=== PATIENT | female | born 1950 | race Caucasian/White ===

== ENCOUNTER 2017-09-02 15:20 | Inpatient (IN) | payer OTHER ==
[2017-09-02] MEDS ORDERED: diPHENhydraMINE IV* 50 MG/ML 1 ml VIAL (BENADRYL) ONE (16:04)
[2017-09-02] MEDS ORDERED: Haloperidol INJ IV/IM* 5 MG/ML AMP ONE (16:04)
[2017-09-02] MEDS ORDERED: LORazepam INJ* 2 MG/ML 1 ML VIAL ONE (16:04)
[2017-09-02 16:40] LABS: Hematocrit 39 % (35-47); Mean Corpuscular HGB Conc 33 g/dl (31-36); Mean Corpuscular Hemoglobin 29 pg (27-31); Mean Corpuscular Volume 87 fL (80-97); Mean Platelet Volume 9 um3 (7.4-10.4); Red Blood Count 4.49 10^6/ul (4.0-5.4); Red Cell Distribution Width 14 % (10.5-15)
[2017-09-02 16:56] LABS: ALT 16 U/L (7-52); AST 19 U/L (13-39); Albumin 3.8 g/dL (3.2-5.2); Alkaline Phosphatase 73 U/L (34-104); Anion Gap 5 mmol/L (2-11); BUN/Creatinine Ratio 32.9 (8-20); Blood Urea Nitrogen 26 mg/dL (6-24); CO2 Carbon Dioxide 25 mmol/L (22-32); Calcium 8.9 mg/dL (8.6-10.3); Chloride 107 mmol/L (101-111); EGFR African American 93.1 (>60); EGFR Non-African American 72.4 (>60); Globulin 2.3 g/dL (2-4); Glucose 105 mg/dL (70-100); Potassium 3.9 mmol/L (3.5-5.0); Sodium 137 mmol/L (133-145); Total Protein 6.1 g/dL (6.4-8.9)
[2017-09-02 17:33] LABS: Acetaminophen < 15 mcg/mL; Alcohol < 10 mg/dL (<10); Salicylate < 2.50 mg/dL (<30)
[2017-09-02 17:38] LABS: TSH (Thyroid Stimulating Horm) 0.55 mcIU/mL (0.34-5.60)
--- NOTE | 2017-09-03 05:39 | ED ---
Gerardo Mckeon Gabriel, scribed for Baltazar Nava on 09/03/17 at 0529 . Progress - Progress Note Progress Note: This patient was signed out from Dr. Mariano, pending disposition, awaiting MHE. After MHE, the director stage has decided to admit the patient but their facility is full, when they have room they will admit her. - Consult/PCP Time Called: 03:11 Course/Dx - Diagnoses Provider Diagnoses: Psychosis The documentation as recorded by the Gerardo max Gabriel accurately reflects the service I personally performed and the decisions made by Elijah ledesma Emmanuel.
--- NOTE | 2017-09-03 10:56 | ED ---
Anthony Mckeon Benjamin, scribed for Laura Evans MD on 09/03/17 at 1056 . Progress - Progress Note Progress Note: This patient was signed out from Dr. Nava, pending disposition, awaiting MHE. - Consult/PCP Time Called: 03:11 Course/Dx - Course Course Of Treatment: Pt is admitted to MHU. - Diagnoses Provider Diagnoses: Schizophrenia The documentation as recorded by the sarahibAnthony arias Benjamin accurately reflects the service I personally performed and the decisions made by Nathan ledesma Abdul, MD.
[2017-09-03] MEDS ORDERED: Al Hydrox/Mg Hydrox/Simet LIQ* 30 ML UDC PO PRN (11:51)
[2017-09-03] MEDS ORDERED: Acetaminophen TAB* 325 MG PO PRN (11:51)
[2017-09-03] MEDS: fluPHENAZine HCL TAB* 5 MG PO SCH (13:16)
[2017-09-03] MEDS ORDERED: chlorproMAZINE TAB* 50 MG PO PRN (16:03)
[2017-09-03] MEDS ORDERED: Benzocaine/Menthol LOZ* 1 LOZENGE PO PRN (16:03)
[2017-09-04] MEDS: LORazepam TAB(*) 0.5 MG PO PRN (06:02)
[2017-09-04] MEDS: Vitamin THERAPEUTIC TAB PO SCH (09:37)
[2017-09-04] MEDS: fluPHENAZine HCL TAB* 5 MG PO SCH (09:37)
--- NOTE | 2017-09-04 11:36 | HP ---
HISTORY AND PHYSICAL: DATE OF ADMISSION: 09/03/17 SUPERVISING PSYCHIATRIST: Dr. Torito Head * (DICTATED BY SHELTON ROBERTS NP) JUSTIFICATION FOR ADMISSION: The patient was brought to the emergency department under 9.45 by [facility] Crisis Team. She had been in the community and presented as floridly psychotic. According to the [facility], the patient was discharged from a psychiatric hospital on the 4th of this month. Today, prior to arrival, the patient was combative with police and with emergency department staff and was given IM medications in the emergency department. CHIEF COMPLAINT: "I am here illegally and everyone will be receiving five years of halfway time for keeping me here." HISTORY OF PRESENT ILLNESS: Ms. Key is a 67-year-old female with multiple psychiatric hospitalizations including to this unit. She is well known to this unit and this commercial insurance underwriter and has a history of schizoaffective disorder. She has history of fixed delusions and continues to express these. 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 She reports that she has been cleared of all mental hygiene, legal implications and does not need to be on medications, nor does she need to be in mental health treatment. She is superficially pleasant. She sits on bed and she is well groomed. She is assertive in her beliefs and continues to deny need for psychiatric care. She declines offer of this commercial insurance underwriter to collaborate with her primary care provider and denies that she has outpatient mental health services. This commercial insurance underwriter phoned [facility] and she has not been an active client since 2012. Therefore, more investigation will be needed to identify where was her recent hospitalization and aftercare. As stated above, the patient is familiar to [facility] from previous hospitalizations. She has had similar presentations in previous admissions. Currently, she is denying audio or visual hallucinations. She is grandiose and speaks of fixed delusions. She is guarded and suspicious and has been in behavioral control since admitted to the mental health unit or the [facility]. PAST PSYCHIATRIC HISTORY: The patient has a longstanding history of schizoaffective disorder and treatment at [facility]. As stated above, she has not been an active client since 2012. She has a history of treatment with Prolixin Decanoate every two weeks. She declined this medication upon arrival to the [facility]. She has no known history of suicide attempts. She has been hospitalized four times at [facility] since 2007 and she has been stay hospitalized for up to 18 months. PAST MEDICATION TRIALS: Estrace and Prolixin. She has also been trialed on Cogentin, trazodone, haloperidol. According to history, she has had her best response with Prolixin Decanoate and lithium adjunct. SUBSTANCE USE HISTORY: The patient reports use of alcohol one glass of wine approximately once a week. She denied other substance use. She is a former smoker and denies current tobacco use. PAST MEDICAL HISTORY: The patient reports current sore throat. Denies other medical problems. Medical record indicates a history of GERD and hypercholesterolemia. CURRENT MEDICATIONS: The patient denies active medications. ALLERGIES: No known drug allergies. SOCIAL HISTORY: The patient reports she is living alone and doing well on her own. Again more information will need to be obtained. Prior records indicate that she has lived in [place] since approximately 2000. She received SSI and SSD. There is no record ever being or having children, and there is no history of legal problems. PHYSICAL EXAMINATION The patient declined physical examination and this was deferred so as not to prevent therapeutic rapport. She denies complaints other than sore throat at this time and she was medically cleared. In the emergency department, she is noted to have somewhat garbled speech and she denies problems with her tongue and is likely that this is an EPS from intermediate antipsychotic medications. She denies pain or discomfort in relation to her tongue or mouth. VITAL SIGNS: Temp 97.1, pulse 73, respirations 16, O2 saturation 99%, BP 131/ 77. LABORATORY DATA: Obtained in the emergency department, her CBC was within normal limits. CMP, BUN high at 26, BUN/creatinine ratio high at 32.9, glucose 105, protein low at 6.1, TSH normal at 0.55. Urinalysis within normal limits. Toxicology negative for salicylates, acetaminophen, or alcohol. Urine drug screen was negative. MENTAL STATUS EXAM: The patient is well groomed, wearing a mg business casual dress. She is wearing dark spectacles. She has long mg hair that is well groomed. She appears stated age. She sits on the bed and speaks with commercial insurance underwriter. She has adequate posture. She is cooperative and pleasant, but somewhat guarded. She changes positions often. She is alert and oriented x3. Her concentration is fair. Her memory is 3/3. Her mood is "fine." Her affect is congruent, bright upon approach. Her speech is soft, garbled, normal volume and rate. Thought process is circumstantial in regards to disagreement and being brought to the emergency department under mental hygiene law and thus being admitted to the [facility]. Content of thought positive for fixed delusions. She denies AV hallucinations, SI, HI, or PI. Her insight is poor. Her judgement is poor and her fund of knowledge is adequate. DIAGNOSES: Schizoaffective disorder, bipolar type; history of gastroesophageal reflux disease; hypercholesterolemia. ASSESSMENT: Ms. Key is a 67-year-old female with a history of schizoaffective disorder, bipolar type. She presented to the emergency department under 9.45 due to disorganized behaviors and bizarre behavior in the community. 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 We will need to identify where this was and what the aftercare plan was. She has refused releases of information for current outpatient providers. She is likely noncompliant with medications. PLAN: Admit to adult behavioral services unit on 9.39 status. Code status is full. Safety checks every 15 minutes. The patient will be encouraged to participate in supportive milieu and psychoeducational groups. We will continue to offer known medications and monitor for mood and thought content. Estimated length of stay is 7 to 10 days. Discharge planning will include outpatient providers with the patient's consent. SHELTON ROBERTS, YOGESH [id number]/CPS #: [id number] DANIELA
--- NOTE | 2017-09-04 12:18 | PN ---
Subjective - Subjective Service Type: 88336 Hosp care 25 min moderate complexity Subjective: Lissette continues to present as calm and in behavioral control. She is pleasant upon approach and engages in conversation. Her thought content is positive for delusions. She reports "I'm not here for mental illness. 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 She states she met with a patient who had lost his arms in the war and his hands were attached to his head in order for him to do gardening. She also talks of her work at [employer] in [place], [place] and [place]. Patient denies GERD symptoms or need for proton pump inhibitor. She states she needs a "IV barium-calcium flush." She presents with involuntary tongue movements when following commands to touch her finger tips to her thumbs bilaterally. She attributes this to a "gladiator hitting me daily and giving me boron poisoning." She denies this to be troublesome and refuses offer of medications such as benztropine or ingrezza. She is noted to have edema on lateral L ankle. She reports this is due to "metabolic involvement from the site of increased peritoneal fluid." She reports having a recent xray and denies pain. Lissette reports she is functioning well and lives alone. She is dating a man named Santiago and they are planning to , have children and retire from all of their hard work. She states she has been deemed "normal with normal brain, behavior and competence." Objective - Appearance Appearance: Well Developed/Nourished Dysmorphic Features: No Hygiene: Normal Grooming: Fairly Well Kept - Behavior Psychomotor Activities: Abnormal-Increased - involuntary toungue movements Exhibits Abnormal Movement: Yes - Attitude and Relatedness Attitude and Relatedness: Psychotically Related Eye Contact: Good - Speech Quality: Unpressured Latencies: Normal Quantity: Copious - Mood Patient's Decription of Mood: "Fine" - Affect Observed Affect: Expansive Affect Consistent with: Euphoria - Thought Process Patient's Thought Process: Disorganized, Tangential, Filght of Ideas Thought Content: Yes Paranoid Ideation - Marshallese doctors, No Passive Wish , No Suicidal Planning, No Homicidal Ideation - Sensorium Experiencing Hallucinations: Yes Type of Hallucinations: Visual: No, Auditory: Yes, Command: No - Level of Consciousness Level of Consciousness: Alert Orientation: Yes Intact, Yes Orientated to Time, Yes Orientated to Place, Yes Orientated to Person - Impulse Control Impulse Control: Tenuous - Insight and Judgement Insight and Judgement: Poor - Group Participation Particating in Group Activities: No - Medication Management Medication Management Adherence: No Assessment - Assessment Merits Inpatient Hospitalization: For Immediate Safety, For Stabilization, To Initiate Treatment, For Discharge Planning Inpatient DSM-IV Dx: schizoaffective d/o, bipolar type Clinical Impression: 67yo white female with hx of multiple psychiatric hospitalizations at [facility] and [facility]. She presented to ED via 945 due to bizarre and disorganized in community. She is floridly psychotic and refusing treatment. She merits hospitalization for immediate safety, evaluation and stabilization. Plan - Plan Treatment Plan: Name: LISSETTE ARTIS Birthdate: 1950 [id number] continue acute intensive psychiatric treatment. obtain information about recent mental health treatment, if any. may consider the T.O.O. process and await a court ruling to force-medicate for safety. Continued Medication Management: Start Medication Medications: Current Medications Acetaminophen (Tylenol Tab*) 650 mg PO Q4H PRN PRN Reason: for pain; or Temp >101 F Al Hydrox/Mg Hydrox/Simethicone (Maalox Plus*) 30 ml PO Q4H PRN PRN Reason: INDIGESTION Chlorpromazine HCl (Thorazine Tab*) 50 mg PO Q8H PRN PRN Reason: severe agitation Fluphenazine HCl (Prolixin Tab*) 5 mg PO DAILY [facility] Last Admin: 09/04/17 09:37 Dose: Not Given Lorazepam (Ativan Tab(*)) 0.5 mg PO Q6H PRN PRN Reason: anxiety/agitation Last Admin: 09/04/17 06:02 Dose: 0.5 mg Multivitamins (Theragran Tab*) 1 tab PO DAILY [facility] Last Admin: 09/04/17 09:37 Dose: Not Given Throat Lozenges (Chloraseptic Nikita*) 1 nikita PO Q2H PRN PRN Reason: SORE THROAT - Discharge Plan Discharge Plan: Outpatient Follow Up Outpatient Program: [facility]
[2017-09-05] MEDS: fluPHENAZine HCL TAB* 5 MG PO SCH (09:51)
[2017-09-05] MEDS: Vitamin THERAPEUTIC TAB PO SCH (09:51)
--- NOTE | 2017-09-05 13:18 | ED ---
Alexandria Mckeon Thomas, scribed for Todd Mariano MD on 09/02/17 at 1621 . Psychiatric Complaint - HPI Summary HPI Summary: The patient is a 67 y/o F BIBA as a 945. In the examination room, she is a poor historian. She is hyperverbal. She is agitated. She has word salad. She has tangential speech. It is not possible to have a conversation with her. At this point, I do not want to touch her before she is medication because I am concerned that she will become more agitated. Per EMR, the patient has a Hx of schizoaffective disorder and psychosis. LEVEL 5 CAVEAT: HPI LIMITED BY MENTAL STATE - History Of Current Complaint Time Seen by Provider: 09/02/17 15:37 Hx Obtained From: Patient Onset/Duration: Still Present Timing: Constant Character: Angry Related History: Positive For: Prior Psychiatric Issues - Allergies/Home Medications Allergies/Adverse Reactions: Allergies Allergy/AdvReac Type Severity Reaction Status Date / Time SEASONAL HAYFEVER Allergy Unknown Uncoded 12/07/14 07:41 Reaction Details PMH/Surg Hx/FS Hx/Imm Hx Previously Healthy: No - LEVEL 5 CAVEAT: PMH LIMITED BY MENTAL STATE Musculoskeletal History: Reports: Hx Arthritis - RIGHT KNEE AND LEG Denies: Hx Osteoporosis Sensory History: Reports: Hx Cataracts - BILATERAL, Hx Contacts or Glasses - GLASSES Denies: Hx Hearing Aid Opthamlomology History: Reports: Hx Cataracts - BILATERAL, Hx Contacts or Glasses - GLASSES Psychiatric History: Reports: Hx Anxiety - CONTROL WITH MEDS, Hx Depression - Cancer History Hx Chemotherapy: No Hx Radiation Therapy: No - Surgical History Surgery Procedure, Year, and Place: 1989 LARYGNX PEEL WITH LASER, [place], SCFACIAL SURGERY A CHILD TIMES 2. Hx Anesthesia Reactions: No Infectious Disease History: Denies: Traveled Outside the [place] in Last 30 Days - Family History Known Family History: Positive: Other - LEVEL 5 CAVEAT: FHX LIMITED BY MENTAL STATE - Social History Alcohol Use: None Hx Substance Use: No Substance Use Type: Reports: None Hx Tobacco Use: Yes Smoking Status (MU): Former Smoker Type: Cigarettes Amount Used/How Often: 2 PPD Length of Time of Smoking/Using Tobacco: 10-12 YEARS Have You Smoked in the Last Year: No Review of Systems - ROS Summary Review of Systems Summary: LEVEL 5 CAVEAT: ROS LIMITED BY MENTAL STATE Positive: Other - Psychiatric problems All Other Systems Reviewed And Are Negative: No Physical Exam - Summary Physical Exam Summary: VITAL SIGNS: Reviewed. GENERAL: ~Patient is a well-developed and nourished female who is lying comfortable in the stretcher. ~Patient is not in any acute respiratory distress. HEAD AND FACE: No signs of trauma. ~No ecchymosis, hematomas or skull depressions. No sinus tenderness. EYES: PERRLA, EOMI x 2, No injected conjunctiva, no nystagmus. EARS: Hearing grossly intact. Ear canals and tympanic membranes are within normal limits. MOUTH: Oropharynx within normal limits. NECK: Supple, trachea is midline, no adenopathy, no JVD, no carotid bruit, no c- spine tenderness, neck with full ROM. CHEST: Symmetric, no tenderness at palpation LUNGS: Clear to auscultation bilaterally. No wheezing or crackles. CVS: Regular rate and rhythm, S1 and S2 present, no murmurs or gallops appreciated. ABDOMEN: Soft, non-tender. No signs of distention. No rebound no guarding, and no masses palpated. Bowel sounds are normal. EXTREMITIES: FROM in all major joints, no edema, no cyanosis or clubbing. NEURO: Alert and oriented x 3. No acute neurological deficits. Speech is normal and follows commands. SKIN: Dry and warm PSYCH: Tangential speech. Hyperverbal. Agitation. Word Salad. LEVEL 5 CAVEAT: PHYSICAL EXAM LIMITED BY MENTAL STATE Triage Information Reviewed: Yes Vital Signs Reviewed: Yes Diagnostics - Laboratory Result Diagrams: 09/02/17 16:34 09/02/17 16:34 Lab Statement: Any lab studies that have been ordered have been reviewed, and results considered in the medical decision making process. Course/Dx - Course Assessment/Plan: The patient is a 67 y/o F BIBA as a 945. In the examination room, she is a poor historian. She is hyperverbal. She is agitated. She has word salad. She has tangential speech. It is not possible to have a conversation with her. At this point, I do not want to touch her before she is medication because I am concerned that she will become more agitated. Per EMR, the patient has a Hx of schizoaffective disorder and psychosis. CT results are without any significant abnormalities. The patient is agitated, not cooperative , and a danger to herself and others. Therefore, the patient was given the B-52 to sedate her. The patient seems to be in some sort of psychosis and agitation. Therefore, at this point the patient will be observed in the emergency department and signed out to Dr. Nava for the patient to be medically cleared and for a further mental health evaluation. - Differential Dx/Clinical Impression Provider Diagnosis: Psychosis Discharge - Discharge Plan Condition: Fair Disposition: OTHER Discharge Disposition Comment: Signed out to Dr. Nava awaiting medical cleareance for MHE. Referrals: Judie Epps MD [Primary Care Provider] - The documentation as recorded by the Alexandria max Thomas accurately reflects the service I personally performed and the decisions made by , Todd Mariano MD.
--- NOTE | 2017-09-05 15:35 | PN ---
Subjective - Subjective Service Type: 33006 Hosp care 15 min low complexity Subjective: Patient asks to be discharged by 4:15 today. She states she can walk with peers during staff pass then to the bus stop. She goes on to state she does not need to be here. 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 She continues to justify tardive dyskinesia movements as "exposure to boron in a mound of my brain." Objective - Appearance Appearance: Well Developed/Nourished Dysmorphic Features: No Hygiene: Normal Grooming: Fairly Well Kept - Behavior Psychomotor Activities: Abnormal-Increased - involuntary tongue movements Exhibits Abnormal Movement: Yes - Attitude and Relatedness Attitude and Relatedness: Psychotically Related Eye Contact: Good - Speech Quality: Unpressured Latencies: Normal Quantity: Appropriate - Mood Patient's Decription of Mood: "Fine" - Affect Observed Affect: Expansive Affect Consistent with: Euphoria - Thought Process Patient's Thought Process: Tangential, Filght of Ideas Thought Content: Yes Paranoid Ideation, No Passive Wish, No Suicidal Planning, No Homicidal Ideation - Sensorium Experiencing Hallucinations: Yes Type of Hallucinations: Visual: No, Auditory: Yes, Command: No - Level of Consciousness Level of Consciousness: Alert Orientation: Yes Intact, Yes Orientated to Time, Yes Orientated to Place, Yes Orientated to Person - Impulse Control Impulse Control: Poor - Insight and Judgement Insight and Judgement: Poor - Group Participation Particating in Group Activities: No - Medication Management Medication Management Adherence: No Assessment - Assessment Merits Inpatient Hospitalization: For Immediate Safety, For Stabilization, To Initiate Treatment, Pending Safe DC Plan Inpatient DSM-IV Dx: schizoaffective d/o, bipolar type Clinical Impression: 67yo white female with hx of multiple psychiatric hospitalizations at [facility] and [facility]. She presented to ED via 945 due to bizarre and disorganized in community. She is floridly psychotic and refusing treatment. She merits hospitalization for immediate safety, evaluation and stabilization. Plan - Plan Treatment Plan: Name: LISSETTE ARTIS Birthdate: 1950 [id number] continue acute intensive psychiatric treatment. obtain information about recent mental health treatment, if any. may consider the T.O.O. process and await a court ruling to force-medicate for safety. Continued Medication Management: Start Medication Medications: Current Medications Acetaminophen (Tylenol Tab*) 650 mg PO Q4H PRN PRN Reason: for pain; or Temp >101 F Al Hydrox/Mg Hydrox/Simethicone (Maalox Plus*) 30 ml PO Q4H PRN PRN Reason: INDIGESTION Chlorpromazine HCl (Thorazine Tab*) 50 mg PO Q8H PRN PRN Reason: severe agitation Fluphenazine HCl (Prolixin Tab*) 5 mg PO DAILY [facility] Last Admin: 09/05/17 09:51 Dose: Not Given Lorazepam (Ativan Tab(*)) 0.5 mg PO Q6H PRN PRN Reason: anxiety/agitation Last Admin: 09/04/17 06:02 Dose: 0.5 mg Multivitamins (Theragran Tab*) 1 tab PO DAILY [facility] Last Admin: 09/05/17 09:51 Dose: Not Given Throat Lozenges (Chloraseptic Nikita*) 1 nikita PO Q2H PRN PRN Reason: SORE THROAT - Discharge Plan Discharge Plan: Consider Longer Term Tx Outpatient Program: [facility]
[2017-09-05] MEDS: LORazepam TAB(*) 0.5 MG PO PRN (23:04)
[2017-09-06] MEDS: Vitamin THERAPEUTIC TAB PO SCH (09:07)
[2017-09-06] MEDS: fluPHENAZine HCL TAB* 5 MG PO SCH (09:09)
[2017-09-06] MEDS: LORazepam TAB(*) 0.5 MG PO PRN (19:04)
[2017-09-07] MEDS: fluPHENAZine HCL TAB* 5 MG PO SCH (09:51)
[2017-09-07] MEDS: Vitamin THERAPEUTIC TAB PO SCH (09:51)
--- NOTE | 2017-09-07 19:15 | PN ---
Subjective - Subjective Subjective: Lissette is pleasant on approach but remains hyperverbal, delusional and disorganized in her thinking. She denies need for medications, does not appear to understand TOO process. She requests discharge early tomorrow. Objective - Appearance Appearance: Healthy Appearing Dysmorphic Features: No Hygiene: Normal Grooming: Well Kept - Behavior Psychomotor Activities: Normal Exhibits Abnormal Movement: No - Attitude and Relatedness Attitude and Relatedness: Psychotically Related Eye Contact: Good - Speech Quality: Pressured Latencies: Normal Quantity: Copious - Mood Patient's Decription of Mood: "Okay" - Affect Observed Affect: Non-labile - Thought Process Patient's Thought Process: Disorganized, Over Inclusive Thought Content: No Passive Wish, No Suicidal Planning, No Homicidal Ideation, No Paranoid Ideation - Sensorium Experiencing Hallucinations: No, Sensorium is Clear - Level of Consciousness Level of Consciousness: Alert Orientation: Yes Intact - Impulse Control Impulse Control: Tenuous - Insight and Judgement Insight and Judgement: Impaired - Group Participation Particating in Group Activities: No - Medication Management Medication Management Adherence: No Assessment - Assessment Merits Inpatient Hospitalization: For Ongoing Evaluation, Consolidate Improvements, For Discharge Planning Inpatient DSM-IV Dx: schizoaffective d/o, bipolar type Clinical Impression: Ongoing impairing, manic/psychotic symptoms, refusing meds, mildly disruptive. Follow-up with court hearing for TOO. Plan - Plan Treatment Plan: Name: LISSETTE ARTIS Birthdate: 1950 [id number] Medications: Current Medications Acetaminophen (Tylenol Tab*) 650 mg PO Q4H PRN PRN Reason: for pain; or Temp >101 F Al Hydrox/Mg Hydrox/Simethicone (Maalox Plus*) 30 ml PO Q4H PRN PRN Reason: INDIGESTION Chlorpromazine HCl (Thorazine Tab*) 50 mg PO Q8H PRN PRN Reason: severe agitation Fluphenazine HCl (Prolixin Tab*) 5 mg PO DAILY [facility] Last Admin: 09/07/17 09:51 Dose: Not Given Lorazepam (Ativan Tab(*)) 0.5 mg PO Q6H PRN PRN Reason: anxiety/agitation Last Admin: 09/06/17 19:04 Dose: 0.5 mg Multivitamins (Theragran Tab*) 1 tab PO DAILY [facility] Last Admin: 09/07/17 09:51 Dose: Not Given Throat Lozenges (Chloraseptic Zhao*) 1 zhao PO Q2H PRN PRN Reason: SORE THROAT - Discharge Plan Discharge Plan: Consider Longer Term Tx Outpatient Program: TBD
[2017-09-07] MEDS: LORazepam TAB(*) 0.5 MG PO PRN (21:03)
[2017-09-08] MEDS: Vitamin THERAPEUTIC TAB PO SCH (10:07)
[2017-09-08] MEDS: fluPHENAZine HCL TAB* 5 MG PO SCH (10:07)
--- NOTE | 2017-09-08 12:55 | PN ---
Subjective - Subjective Service Type: 24139 Hosp care 15 min low complexity Subjective: This clinician is taking over Lissette's care due to her steadfast refusal to adhere with recommended antipsychotic therapy up until now in her hospitalization. The patient is overtly delusional on examination, telling me that she is [facility] who works for [employer]. "This is a misunderstanding. I was taken here mistakenly. I have Tourette's syndrome but otherwise am of sound mind and body. There is a court order that I am to be deemed mentally competent for the remainder of my life. 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 Are you a Bahamian doctor or a Turkmen doctor, because I have been authorized to be called sane by all members of the international community." The patient is not participating in groups or leaving her room much. Staff notes indicate she has been attempting to call 911 for the police to take her home. At times she is agitated, yelling rude comments at staff and peers. She is mostly observed talking to herself. Objective - Appearance Appearance: Well Developed/Nourished Dysmorphic Features: No Hygiene: Normal Grooming: Fairly Well Kept - Behavior Psychomotor Activities: Normal Exhibits Abnormal Movement: No - Attitude and Relatedness Attitude and Relatedness: Psychotically Related Eye Contact: Fair - Speech Quality: Pressured Latencies: Short Quantity: Copious - Mood Patient's Decription of Mood: "Fine" - Affect Observed Affect: Labile Affect Consistent with: Euphoria - Thought Process Patient's Thought Process: Loose Associations Thought Content: Yes Paranoid Ideation, No Passive Wish, No Suicidal Planning, No Homicidal Ideation - Sensorium Experiencing Hallucinations: Yes Type of Hallucinations: Visual: No, Auditory: Yes, Command: No - Level of Consciousness Level of Consciousness: Alert Orientation: Yes Intact, Yes Orientated to Time, Yes Orientated to Place, Yes Orientated to Person - Impulse Control Impulse Control: Poor - Insight and Judgement Insight and Judgement: Impaired - Group Participation Particating in Group Activities: No - Medication Management Medication Management Adherence: No Assessment - Assessment Merits Inpatient Hospitalization: For Immediate Safety, For Stabilization Inpatient DSM-IV Dx: schizoaffective d/o, bipolar type Clinical Impression: 67 y.o. single, white female with a history of schizoaffective DO, bipolar type who was brought to the ED on a 9.45 due to disruptive, agitated behavior in the community and inability to care for herself. Plan - Plan Treatment Plan: Name: LISSETTE ARTIS Birthdate: 1950 [id number] The patient is non-adherent with antipsychotic therapy and will require T.O.O. proceedings to get her well enough for safe discharge. Continue inpatient management. Continued Medication Management: Start Medication Medications: Current Medications Acetaminophen (Tylenol Tab*) 650 mg PO Q4H PRN PRN Reason: for pain; or Temp >101 F Al Hydrox/Mg Hydrox/Simethicone (Maalox Plus*) 30 ml PO Q4H PRN PRN Reason: INDIGESTION Chlorpromazine HCl (Thorazine Tab*) 50 mg PO Q8H PRN PRN Reason: severe agitation Fluphenazine HCl (Prolixin Tab*) 5 mg PO DAILY [facility] Last Admin: 09/08/17 10:07 Dose: Not Given Lorazepam (Ativan Tab(*)) 0.5 mg PO Q6H PRN PRN Reason: anxiety/agitation Last Admin: 09/07/17 21:03 Dose: 0.5 mg Multivitamins (Theragran Tab*) 1 tab PO DAILY [facility] Last Admin: 09/08/17 10:07 Dose: Not Given Throat Lozenges (Chloraseptic Zhao*) 1 zhao PO Q2H PRN PRN Reason: SORE THROAT - Discharge Plan Discharge Plan: Inpatient Hospitalization
--- NOTE | 2017-09-09 10:54 | PN ---
Subjective - Subjective Service Type: 50496 Hosp care 15 min low complexity Subjective: Lissette is found lying in bed, seclusive to her room, not participating in milieu functions other than meals. Her speech is incomprehensible but I discern some complaints she is making about the court here in [facility] being a "kangaroo court." She is highly disorganized and not able to give me details about where she has been residing or how she takes care of herself outside the hospital. Objective - Appearance Appearance: Well Developed/Nourished Dysmorphic Features: No Hygiene: Normal Grooming: Fairly Well Kept - Behavior Psychomotor Activities: Normal Exhibits Abnormal Movement: No - Attitude and Relatedness Attitude and Relatedness: Psychotically Related Eye Contact: Fair - Speech Quality: Pressured Latencies: Short Quantity: Copious - Mood Patient's Decription of Mood: "Fine" - Affect Observed Affect: Expansive Affect Consistent with: Euphoria - Thought Process Patient's Thought Process: Disorganized, Filght of Ideas Thought Content: Yes Paranoid Ideation, No Passive Wish, No Suicidal Planning, No Homicidal Ideation - Sensorium Experiencing Hallucinations: No, Sensorium is Clear Type of Hallucinations: Visual: No, Auditory: No, Command: No - Level of Consciousness Level of Consciousness: Alert Orientation: Yes Intact, Yes Orientated to Time, Yes Orientated to Place, Yes Orientated to Person - Impulse Control Impulse Control: Poor - Insight and Judgement Insight and Judgement: Impaired - Group Participation Particating in Group Activities: No - Medication Management Medication Management Adherence: No Assessment - Assessment Merits Inpatient Hospitalization: For Immediate Safety, For Stabilization Inpatient DSM-IV Dx: schizoaffective d/o, bipolar type Clinical Impression: 67 y.o. single, white female with a history of schizoaffective DO, bipolar type who was brought to the ED on a 9.45 due to disruptive, agitated behavior in the community and inability to care for herself. Plan - Plan Treatment Plan: Name: LISSETTE ARTIS Birthdate: 1950 [id number] The patient is non-adherent with antipsychotic therapy and will require T.O.O. proceedings to get her well enough for safe discharge. Continue inpatient management. Continued Medication Management: Start Medication Medications: Current Medications Acetaminophen (Tylenol Tab*) 650 mg PO Q4H PRN PRN Reason: for pain; or Temp >101 F Al Hydrox/Mg Hydrox/Simethicone (Maalox Plus*) 30 ml PO Q4H PRN PRN Reason: INDIGESTION Chlorpromazine HCl (Thorazine Tab*) 50 mg PO Q8H PRN PRN Reason: severe agitation Fluphenazine HCl (Prolixin Tab*) 5 mg PO DAILY [facility] Last Admin: 09/08/17 10:07 Dose: Not Given Lorazepam (Ativan Tab(*)) 0.5 mg PO Q6H PRN PRN Reason: anxiety/agitation Last Admin: 09/07/17 21:03 Dose: 0.5 mg Multivitamins (Theragran Tab*) 1 tab PO DAILY [facility] Last Admin: 09/08/17 10:07 Dose: Not Given Throat Lozenges (Chloraseptic Zhao*) 1 zhao PO Q2H PRN PRN Reason: SORE THROAT - Discharge Plan Discharge Plan: Inpatient Hospitalization
[2017-09-09] MEDS: fluPHENAZine HCL TAB* 5 MG PO SCH (11:30)
[2017-09-09] MEDS: Vitamin THERAPEUTIC TAB PO SCH (11:30)
[2017-09-10] MEDS: fluPHENAZine HCL TAB* 5 MG PO SCH (09:34)
[2017-09-10] MEDS: Vitamin THERAPEUTIC TAB PO SCH (09:34)
--- NOTE | 2017-09-10 14:09 | PN ---
Subjective - Subjective Service Type: 28307 Hosp care 15 min low complexity Subjective: The patient remains hyperverbal, talking and shouting to herself on the milieu. She has been reportedly stalking her roommate around the unit, accusing her of crimes and interrogating her in what she calls an "active investigation." She is refusing medications and is highly disorganized. Objective - Appearance Appearance: Well Developed/Nourished Dysmorphic Features: No Hygiene: Normal Grooming: Fairly Well Kept - Behavior Psychomotor Activities: Normal Exhibits Abnormal Movement: No - Attitude and Relatedness Attitude and Relatedness: Psychotically Related Eye Contact: Poor - Speech Quality: Pressured Latencies: Short Quantity: Copious - Mood Patient's Decription of Mood: "Fine" - Affect Observed Affect: Labile Affect Consistent with: Euphoria - Thought Process Patient's Thought Process: Incoherent, Disorganized Thought Content: Yes Paranoid Ideation, No Passive Wish, No Suicidal Planning, No Homicidal Ideation - Sensorium Experiencing Hallucinations: Yes Type of Hallucinations: Visual: No, Auditory: Yes, Command: No - Level of Consciousness Level of Consciousness: Agitated Orientation: Yes Intact, Yes Orientated to Time, Yes Orientated to Place, Yes Orientated to Person - Impulse Control Impulse Control: Poor - Insight and Judgement Insight and Judgement: Impaired - Group Participation Particating in Group Activities: No - Medication Management Medication Management Adherence: No Assessment - Assessment Merits Inpatient Hospitalization: For Immediate Safety, For Stabilization Inpatient DSM-IV Dx: schizoaffective d/o, bipolar type Clinical Impression: 67 y.o. single, white female with a history of schizoaffective DO, bipolar type who was brought to the ED on a 9.45 due to disruptive, agitated behavior in the community and inability to care for herself. Plan - Plan Treatment Plan: Name: LISSETTE ARTIS Birthdate: 1950 [id number] The patient is non-adherent with antipsychotic therapy and will require T.O.O. proceedings to get her well enough for safe discharge. Continue inpatient management. Continued Medication Management: Start Medication Medications: Current Medications Acetaminophen (Tylenol Tab*) 650 mg PO Q4H PRN PRN Reason: for pain; or Temp >101 F Al Hydrox/Mg Hydrox/Simethicone (Maalox Plus*) 30 ml PO Q4H PRN PRN Reason: INDIGESTION Chlorpromazine HCl (Thorazine Tab*) 50 mg PO Q8H PRN PRN Reason: severe agitation Fluphenazine HCl (Prolixin Tab*) 5 mg PO DAILY [facility] Last Admin: 09/10/17 09:34 Dose: Not Given Lorazepam (Ativan Tab(*)) 0.5 mg PO Q6H PRN PRN Reason: anxiety/agitation Last Admin: 09/07/17 21:03 Dose: 0.5 mg Multivitamins (Theragran Tab*) 1 tab PO DAILY [facility] Last Admin: 09/10/17 09:34 Dose: Not Given Throat Lozenges (Chloraseptic Nikita*) 1 nikita PO Q2H PRN PRN Reason: SORE THROAT - Discharge Plan Discharge Plan: Inpatient Hospitalization
[2017-09-11] MEDS: Vitamin THERAPEUTIC TAB PO SCH (09:05)
[2017-09-11] MEDS: fluPHENAZine HCL TAB* 5 MG PO SCH (09:05)
--- NOTE | 2017-09-11 13:13 | PN ---
Subjective - Subjective Date of Service: 09/11/17 Service Type: 30947 Hosp care 15 min low complexity Subjective: Lissette was quite agitated and started screaming at me in the hallway after I mentioned her pending court hearing today. 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 Objective - Appearance Appearance: Well Developed/Nourished Dysmorphic Features: No Hygiene: Normal Grooming: Fairly Well Kept - Behavior Psychomotor Activities: Normal Exhibits Abnormal Movement: No - Attitude and Relatedness Attitude and Relatedness: Hostile Eye Contact: Poor - Speech Quality: Pressured Latencies: Short Quantity: Copious - Mood Patient's Decription of Mood: "Fine" - Affect Observed Affect: Labile Affect Consistent with: Euphoria - Thought Process Patient's Thought Process: Disorganized Thought Content: Yes Paranoid Ideation, No Passive Wish, No Suicidal Planning, No Homicidal Ideation - Sensorium Experiencing Hallucinations: Yes Type of Hallucinations: Visual: No, Auditory: Yes, Command: No - Level of Consciousness Level of Consciousness: Agitated Orientation: Yes Intact, Yes Orientated to Time, Yes Orientated to Place, Yes Orientated to Person - Impulse Control Impulse Control: Poor - Insight and Judgement Insight and Judgement: Impaired - Group Participation Particating in Group Activities: No - Medication Management Medication Management Adherence: No Assessment - Assessment Merits Inpatient Hospitalization: For Immediate Safety, For Stabilization Inpatient DSM-IV Dx: schizoaffective d/o, bipolar type Clinical Impression: 67 y.o. single, white female with a history of schizoaffective DO, bipolar type who was brought to the ED on a 9.45 due to disruptive, agitated behavior in the community and inability to care for herself. Plan - Plan Treatment Plan: Name: LISSETTE ARTIS Birthdate: 1950 [id number] The patient is non-adherent with antipsychotic therapy and will require T.O.O. proceedings to get her well enough for safe discharge. Continue inpatient management. Continued Medication Management: Start Medication Medications: Current Medications Acetaminophen (Tylenol Tab*) 650 mg PO Q4H PRN PRN Reason: for pain; or Temp >101 F Al Hydrox/Mg Hydrox/Simethicone (Maalox Plus*) 30 ml PO Q4H PRN PRN Reason: INDIGESTION Chlorpromazine HCl (Thorazine Tab*) 50 mg PO Q8H PRN PRN Reason: severe agitation Fluphenazine HCl (Prolixin Tab*) 5 mg PO DAILY [facility] Last Admin: 09/11/17 09:05 Dose: Not Given Lorazepam (Ativan Tab(*)) 0.5 mg PO Q6H PRN PRN Reason: anxiety/agitation Last Admin: 09/07/17 21:03 Dose: 0.5 mg Multivitamins (Theragran Tab*) 1 tab PO DAILY [facility] Last Admin: 09/11/17 09:05 Dose: Not Given Throat Lozenges (Chloraseptic Zhao*) 1 zhao PO Q2H PRN PRN Reason: SORE THROAT - Discharge Plan Discharge Plan: Inpatient Hospitalization
[2017-09-12] MEDS: fluPHENAZine HCL TAB* 5 MG PO SCH (09:29)
[2017-09-12] MEDS: Vitamin THERAPEUTIC TAB PO SCH (09:30)
--- NOTE | 2017-09-12 15:31 | PN ---
Subjective - Subjective Date of Service: 09/12/17 Service Type: [id number] Hosp care 15 min low complexity Subjective: Lissette is disorganized and ranting today on the milieu, talking about [place] Chief Justice Matthew Wells and the [place] [employer]. She is somewhat threatening, looking directly at me when she states with a scowl "Every year a snowball with a rock in it hits a doctor's car!" She remains med noncompliant. Objective - Appearance Appearance: Well Developed/Nourished Dysmorphic Features: No Hygiene: Normal Grooming: Fairly Well Kept - Behavior Psychomotor Activities: Abnormal-Increased Exhibits Abnormal Movement: No - Attitude and Relatedness Attitude and Relatedness: Psychotically Related Eye Contact: Poor - Speech Quality: Pressured Latencies: Short Quantity: Copious - Mood Patient's Decription of Mood: "Fine" - Affect Observed Affect: Labile Affect Consistent with: Euphoria - Thought Process Patient's Thought Process: Loose Associations Thought Content: Yes Paranoid Ideation, No Passive Wish, No Suicidal Planning, No Homicidal Ideation - Sensorium Experiencing Hallucinations: Yes Type of Hallucinations: Visual: No, Auditory: Yes, Command: No - Level of Consciousness Orientation: Yes Intact, Yes Orientated to Time, Yes Orientated to Place, Yes Orientated to Person - Impulse Control Impulse Control: Poor - Insight and Judgement Insight and Judgement: Impaired - Group Participation Particating in Group Activities: No - Medication Management Medication Management Adherence: No Assessment - Assessment Merits Inpatient Hospitalization: For Immediate Safety, For Stabilization Inpatient DSM-IV Dx: schizoaffective d/o, bipolar type Clinical Impression: 67 y.o. single, white female with a history of schizoaffective DO, bipolar type who was brought to the ED on a 9.45 due to disruptive, agitated behavior in the community and inability to care for herself. Plan - Plan Treatment Plan: Name: LISSETTE ARTIS Birthdate: 1950 [id number] The patient is non-adherent with antipsychotic therapy and will require T.O.O. proceedings to get her well enough for safe discharge. Court pending for September 16 at 3:30. Continue inpatient management. Continued Medication Management: Start Medication Medications: Current Medications Acetaminophen (Tylenol Tab*) 650 mg PO Q4H PRN PRN Reason: for pain; or Temp >101 F Al Hydrox/Mg Hydrox/Simethicone (Maalox Plus*) 30 ml PO Q4H PRN PRN Reason: INDIGESTION Chlorpromazine HCl (Thorazine Tab*) 50 mg PO Q8H PRN PRN Reason: severe agitation Fluphenazine HCl (Prolixin Tab*) 5 mg PO DAILY [facility] Last Admin: 09/12/17 09:29 Dose: Not Given Lorazepam (Ativan Tab(*)) 0.5 mg PO Q6H PRN PRN Reason: anxiety/agitation Last Admin: 09/07/17 21:03 Dose: 0.5 mg Multivitamins (Theragran Tab*) 1 tab PO DAILY [facility] Last Admin: 09/12/17 09:30 Dose: Not Given Throat Lozenges (Chloraseptic Nikita*) 1 nikita PO Q2H PRN PRN Reason: SORE THROAT - Discharge Plan Discharge Plan: Inpatient Hospitalization
[2017-09-13] MEDS: Vitamin THERAPEUTIC TAB PO SCH (09:18)
[2017-09-13] MEDS: fluPHENAZine HCL TAB* 5 MG PO SCH (09:18)
[2017-09-13] MEDS: LORazepam TAB(*) 0.5 MG PO PRN (21:25)
[2017-09-14] MEDS: Vitamin THERAPEUTIC TAB PO SCH (09:07)
[2017-09-14] MEDS: fluPHENAZine HCL TAB* 5 MG PO SCH (09:07)
[2017-09-15] MEDS: fluPHENAZine HCL TAB* 5 MG PO SCH (08:01)
[2017-09-15] MEDS: Vitamin THERAPEUTIC TAB PO SCH (08:01)
[2017-09-15] MEDS: LORazepam TAB(*) 0.5 MG PO PRN (13:50)
--- NOTE | 2017-09-15 15:13 | PN ---
Subjective - Subjective Date of Service: 09/15/17 Service Type: 50862 Hosp care 15 min low complexity Subjective: Lissette is fixated on the court hearing scheduled for her tomorrow at 3:30 PM. She perseverates on the name of the construction inspector "Zhen Murillo." She remains totally disorganized and talking to herself in her room. Objective - Appearance Appearance: Well Developed/Nourished Dysmorphic Features: No Hygiene: Normal Grooming: Fairly Well Kept - Behavior Psychomotor Activities: Normal Exhibits Abnormal Movement: No - Attitude and Relatedness Attitude and Relatedness: Psychotically Related Eye Contact: Poor - Speech Quality: Pressured Latencies: Short Quantity: Copious - Mood Patient's Decription of Mood: "Great" - Affect Observed Affect: Labile Affect Consistent with: Euphoria - Thought Process Patient's Thought Process: Disorganized, Filght of Ideas Thought Content: Yes Paranoid Ideation, No Passive Wish, No Suicidal Planning, No Homicidal Ideation - Sensorium Experiencing Hallucinations: No, Sensorium is Clear Type of Hallucinations: Visual: No, Auditory: No, Command: No - Level of Consciousness Level of Consciousness: Alert Orientation: Yes Intact, Yes Orientated to Time, Yes Orientated to Place, Yes Orientated to Person - Impulse Control Impulse Control: Poor - Insight and Judgement Insight and Judgement: Impaired - Group Participation Particating in Group Activities: No - Medication Management Medication Management Adherence: No Assessment - Assessment Merits Inpatient Hospitalization: For Immediate Safety, For Stabilization Inpatient DSM-IV Dx: schizoaffective d/o, bipolar type Clinical Impression: 67 y.o. single, white female with a history of schizoaffective DO, bipolar type who was brought to the ED on a 9.45 due to disruptive, agitated behavior in the community and inability to care for herself. Plan - Plan Treatment Plan: Name: LISSETTE ARTIS Birthdate: 1950 [id number] The patient is non-adherent with antipsychotic therapy and will require T.O.O. proceedings to get her well enough for safe discharge. Court pending for September 16 at 3:30. Continue inpatient management. Continued Medication Management: Start Medication Medications: Current Medications Acetaminophen (Tylenol Tab*) 650 mg PO Q4H PRN PRN Reason: for pain; or Temp >101 F Al Hydrox/Mg Hydrox/Simethicone (Maalox Plus*) 30 ml PO Q4H PRN PRN Reason: INDIGESTION Chlorpromazine HCl (Thorazine Tab*) 50 mg PO Q8H PRN PRN Reason: severe agitation Fluphenazine HCl (Prolixin Tab*) 5 mg PO DAILY [facility] Last Admin: 09/15/17 08:01 Dose: Not Given Lorazepam (Ativan Tab(*)) 0.5 mg PO Q6H PRN PRN Reason: anxiety/agitation Last Admin: 09/15/17 13:50 Dose: 0.5 mg Multivitamins (Theragran Tab*) 1 tab PO DAILY [facility] Last Admin: 09/15/17 08:01 Dose: Not Given Throat Lozenges (Chloraseptic Nikita*) 1 nikita PO Q2H PRN PRN Reason: SORE THROAT - Discharge Plan Discharge Plan: Inpatient Hospitalization
[2017-09-16] MEDS: fluPHENAZine HCL TAB* 5 MG PO SCH (09:23)
[2017-09-16] MEDS: Vitamin THERAPEUTIC TAB PO SCH (09:23)
[2017-09-17] MEDS: Vitamin THERAPEUTIC TAB PO SCH (08:45)
[2017-09-17] MEDS: fluPHENAZine HCL TAB* 5 MG PO SCH (08:47)
--- NOTE | 2017-09-17 13:39 | PN ---
Subjective - Subjective Date of Service: 09/17/17 Service Type: 85335 Hosp care 15 min low complexity Subjective: The patient remains disorganized, asking whether the medication will protect her from radiation. She testified in court yesterday and was difficult to understand, or redirect. The hospital was granted an order for treatment over her objection and she has already complied with oral fluphenazine. Objective - Appearance Appearance: Well Developed/Nourished Dysmorphic Features: No Hygiene: Normal Grooming: Fairly Well Kept - Behavior Psychomotor Activities: Abnormal-Increased Exhibits Abnormal Movement: Yes - Attitude and Relatedness Attitude and Relatedness: Psychotically Related Eye Contact: Poor - Speech Quality: Pressured Latencies: Short Quantity: Copious - Mood Patient's Decription of Mood: "Fine" - Affect Observed Affect: Fair Affect Consistent with: Euthymia - Thought Process Patient's Thought Process: Disorganized, Loose Associations Thought Content: Yes Paranoid Ideation, No Passive Wish, No Suicidal Planning, No Homicidal Ideation - Sensorium Experiencing Hallucinations: Yes Type of Hallucinations: Visual: No, Auditory: Yes, Command: No - Level of Consciousness Level of Consciousness: Alert Orientation: Yes Intact, Yes Orientated to Time, Yes Orientated to Place, Yes Orientated to Person - Impulse Control Impulse Control: Poor - Insight and Judgement Insight and Judgement: Impaired - Group Participation Particating in Group Activities: No - Medication Management Medication Management Adherence: Yes Assessment - Assessment Merits Inpatient Hospitalization: For Immediate Safety, For Stabilization Inpatient DSM-IV Dx: schizoaffective d/o, bipolar type Clinical Impression: 67 y.o. single, white female with a history of schizoaffective DO, bipolar type who was brought to the ED on a 9.45 due to disruptive, agitated behavior in the community and inability to care for herself. Plan - Plan Treatment Plan: Name: LISSETTE ARTIS Birthdate: 1950 [id number] The patient is now court mandated for T.O.O. and we will start fluphenazine decanoate 25mg IM q2wks, augmented with oral fluphenazine 5mg PO qday. Continue inpatient management. Continued Medication Management: Start Medication Medications: Current Medications Acetaminophen (Tylenol Tab*) 650 mg PO Q4H PRN PRN Reason: for pain; or Temp >101 F Al Hydrox/Mg Hydrox/Simethicone (Maalox Plus*) 30 ml PO Q4H PRN PRN Reason: INDIGESTION Chlorpromazine HCl (Thorazine Tab*) 50 mg PO Q8H PRN PRN Reason: severe agitation Fluphenazine Decanoate (Prolixin Decanoate*) 25 mg IM Q14D [facility] Fluphenazine HCl (Prolixin Tab*) 5 mg PO DAILY [facility] Last Admin: 09/17/17 08:47 Dose: 5 mg Lorazepam (Ativan Tab(*)) 0.5 mg PO Q6H PRN PRN Reason: anxiety/agitation Last Admin: 09/15/17 13:50 Dose: 0.5 mg Multivitamins (Theragran Tab*) 1 tab PO DAILY [facility] Last Admin: 09/17/17 08:45 Dose: Not Given Throat Lozenges (Chloraseptic Nikita*) 1 nikita PO Q2H PRN PRN Reason: SORE THROAT - Discharge Plan Discharge Plan: Inpatient Hospitalization
[2017-09-17] MEDS ORDERED: Fluphenazine Decanoate* 25 MG/ML 5 ML VIAL IM SCH (14:00)
[2017-09-18] MEDS: fluPHENAZine HCL TAB* 5 MG PO SCH (08:59)
[2017-09-18] MEDS: Vitamin THERAPEUTIC TAB PO SCH (09:04)
--- NOTE | 2017-09-18 11:55 | PN ---
Subjective - Subjective Date of Service: 09/18/17 Service Type: [id number] Hosp care 15 min low complexity Subjective: The patient remains disorganized and was resistant to taking fluphenazine decanoate yesterday, despite the court order for T.O.O. She was writing letters to the [employer] and [employer] to protest her treatment. Today she is more cooperative and requests use of the comfort room and computer. She denies SI or HI. Objective - Appearance Appearance: Well Developed/Nourished Dysmorphic Features: No Hygiene: Normal Grooming: Fairly Well Kept - Behavior Psychomotor Activities: Normal Exhibits Abnormal Movement: Yes - Attitude and Relatedness Attitude and Relatedness: Cooperative Eye Contact: Fair - Speech Quality: Unpressured Latencies: Normal Quantity: Appropriate - Mood Patient's Decription of Mood: "Okay" - Affect Observed Affect: Good Affect Consistent with: Euthymia - Thought Process Patient's Thought Process: Disorganized, Loose Associations Thought Content: Yes Paranoid Ideation, No Passive Wish, No Suicidal Planning, No Homicidal Ideation - Sensorium Experiencing Hallucinations: Yes Type of Hallucinations: Visual: No, Auditory: Yes, Command: No - Level of Consciousness Level of Consciousness: Alert Orientation: Yes Intact, Yes Orientated to Time, Yes Orientated to Place, Yes Orientated to Person - Impulse Control Impulse Control: Poor - Insight and Judgement Insight and Judgement: Impaired - Group Participation Particating in Group Activities: No - Medication Management Medication Management Adherence: Yes Assessment - Assessment Merits Inpatient Hospitalization: For Immediate Safety, For Stabilization Inpatient DSM-IV Dx: schizoaffective d/o, bipolar type Clinical Impression: 67 y.o. single, white female with a history of schizoaffective DO, bipolar type who was brought to the ED on a 9.45 due to disruptive, agitated behavior in the community and inability to care for herself. Plan - Plan Treatment Plan: Name: LISSETTE ARTIS Birthdate: 1950 [id number] The patient is now court mandated for T.O.O. and we will start fluphenazine decanoate 25mg IM q2wks, augmented with oral fluphenazine 5mg PO qday. Continue inpatient management. Continued Medication Management: Start Medication Medications: Current Medications Acetaminophen (Tylenol Tab*) 650 mg PO Q4H PRN PRN Reason: for pain; or Temp >101 F Al Hydrox/Mg Hydrox/Simethicone (Maalox Plus*) 30 ml PO Q4H PRN PRN Reason: INDIGESTION Chlorpromazine HCl (Thorazine Tab*) 50 mg PO Q8H PRN PRN Reason: severe agitation Fluphenazine Decanoate (Prolixin Decanoate*) 25 mg IM Q14D [facility] Last Admin: 09/17/17 14:19 Dose: 25 mg Fluphenazine HCl (Prolixin Tab*) 5 mg PO DAILY [facility] Last Admin: 09/18/17 08:59 Dose: 5 mg Lorazepam (Ativan Tab(*)) 0.5 mg PO Q6H PRN PRN Reason: anxiety/agitation Last Admin: 09/15/17 13:50 Dose: 0.5 mg Multivitamins (Theragran Tab*) 1 tab PO DAILY [facility] Last Admin: 09/18/17 09:04 Dose: Not Given Throat Lozenges (Chloraseptic Nikita*) 1 nikita PO Q2H PRN PRN Reason: SORE THROAT - Discharge Plan Discharge Plan: Inpatient Hospitalization
[2017-09-19] MEDS: fluPHENAZine HCL TAB* 5 MG PO SCH (09:02)
[2017-09-19] MEDS: Vitamin THERAPEUTIC TAB PO SCH (09:08)
--- NOTE | 2017-09-19 13:40 | PN ---
Subjective - Subjective Date of Service: 09/19/17 Service Type: [id number] Hosp care 15 min low complexity Subjective: Lissette presents as less hyperverbal and less intrusive today, although her thought content is still hard to follow. Her tardive dyskinesia appears improved since resuming fluphenazine therapy. She denies SI or HI. Objective - Appearance Appearance: Well Developed/Nourished Dysmorphic Features: No Hygiene: Normal Grooming: Fairly Well Kept - Behavior Psychomotor Activities: Normal Exhibits Abnormal Movement: Yes - Attitude and Relatedness Attitude and Relatedness: Psychotically Related Eye Contact: Fair - Speech Quality: Unpressured Latencies: Normal Quantity: Appropriate - Mood Patient's Decription of Mood: "Okay" - Affect Observed Affect: Good Affect Consistent with: Euthymia - Thought Process Patient's Thought Process: Disorganized Thought Content: Yes Paranoid Ideation, No Passive Wish, No Suicidal Planning, No Homicidal Ideation - Sensorium Experiencing Hallucinations: No, Sensorium is Clear Type of Hallucinations: Visual: No, Auditory: No, Command: No - Level of Consciousness Level of Consciousness: Alert Orientation: Yes Intact, Yes Orientated to Time, Yes Orientated to Place, Yes Orientated to Person - Impulse Control Impulse Control: Poor - Insight and Judgement Insight and Judgement: Impaired - Group Participation Particating in Group Activities: No - Medication Management Medication Management Adherence: Yes Assessment - Assessment Merits Inpatient Hospitalization: For Immediate Safety, For Stabilization Inpatient DSM-IV Dx: schizoaffective d/o, bipolar type Clinical Impression: 67 y.o. single, white female with a history of schizoaffective DO, bipolar type who was brought to the ED on a 9.45 due to disruptive, agitated behavior in the community and inability to care for herself. Plan - Plan Treatment Plan: Name: LISSETTE ARTIS Birthdate: 1950 [id number] The patient is now court mandated for T.O.O. and we have started fluphenazine decanoate 25mg IM q2wks, augmented with oral fluphenazine 5mg PO qday. Continue inpatient management. Continued Medication Management: Start Medication Medications: Current Medications Acetaminophen (Tylenol Tab*) 650 mg PO Q4H PRN PRN Reason: for pain; or Temp >101 F Al Hydrox/Mg Hydrox/Simethicone (Maalox Plus*) 30 ml PO Q4H PRN PRN Reason: INDIGESTION Chlorpromazine HCl (Thorazine Tab*) 50 mg PO Q8H PRN PRN Reason: severe agitation Fluphenazine Decanoate (Prolixin Decanoate*) 25 mg IM Q14D [facility] Last Admin: 09/17/17 14:19 Dose: 25 mg Fluphenazine HCl (Prolixin Tab*) 5 mg PO DAILY [facility] Last Admin: 09/19/17 09:02 Dose: 5 mg Lorazepam (Ativan Tab(*)) 0.5 mg PO Q6H PRN PRN Reason: anxiety/agitation Last Admin: 09/15/17 13:50 Dose: 0.5 mg Multivitamins (Theragran Tab*) 1 tab PO DAILY [facility] Last Admin: 09/19/17 09:08 Dose: Not Given Throat Lozenges (Chloraseptic Zhao*) 1 zhao PO Q2H PRN PRN Reason: SORE THROAT - Discharge Plan Discharge Plan: Inpatient Hospitalization
[2017-09-20] MEDS: Vitamin THERAPEUTIC TAB PO SCH (09:06)
[2017-09-20] MEDS: fluPHENAZine HCL TAB* 5 MG PO SCH (09:06)
[2017-09-21] MEDS: fluPHENAZine HCL TAB* 5 MG PO SCH (08:53)
[2017-09-21] MEDS: Vitamin THERAPEUTIC TAB PO SCH (08:53)
[2017-09-21] MEDS ORDERED: Olanzapine INJ(NF) 10 MG VIAL IM ONE (17:00)
[2017-09-22] MEDS: fluPHENAZine HCL TAB* 5 MG PO SCH (09:20)
[2017-09-22] MEDS: Vitamin THERAPEUTIC TAB PO SCH (09:20)
--- NOTE | 2017-09-22 12:32 | PN ---
Subjective - Subjective Date of Service: 09/22/17 Service Type: [id number] Hosp care 15 min low complexity Subjective: Lissette is agitated and disorganized. She required prn olanzapine IM last night for hostile, aggressive behavior on the unit. Today, she displays poor boundaries, at one point attempting to stroke my face and asking me if I've ever had a doctor remove part of my brain. "I have been alerted by a message, written in NATHALIA code, that there is a bombing about to happen to this hospital." She leads me to my room and shows me where she would usp herself if an explosion hit the building. She asks me whether I communicated with one side of her brain last night using a secret "wavelength?" After being notified of our intention to refer her to the [facility], she reacts by screaming at the [facility] divorce attorney, shouting "You are not a garage attendant, you do not have the credentials to approach the bench!" Objective - Appearance Appearance: Well Developed/Nourished Dysmorphic Features: No Hygiene: Normal Grooming: Fairly Well Kept - Behavior Psychomotor Activities: Normal Exhibits Abnormal Movement: Yes - Attitude and Relatedness Attitude and Relatedness: Hostile Eye Contact: Poor - Speech Quality: Pressured Latencies: Short Quantity: Copious - Mood Patient's Decription of Mood: "Irritable" - Affect Observed Affect: Labile Affect Consistent with: Dysphoria - Thought Process Patient's Thought Process: Disorganized Thought Content: Yes Paranoid Ideation, No Passive Wish, No Suicidal Planning, No Homicidal Ideation - Sensorium Experiencing Hallucinations: Yes Type of Hallucinations: Visual: No, Auditory: Yes, Command: No - Level of Consciousness Level of Consciousness: Alert Orientation: Yes Intact, Yes Orientated to Time, Yes Orientated to Place, Yes Orientated to Person - Impulse Control Impulse Control: Poor - Insight and Judgement Insight and Judgement: Impaired - Group Participation Particating in Group Activities: No - Medication Management Medication Management Adherence: Yes Assessment - Assessment Merits Inpatient Hospitalization: For Immediate Safety, For Stabilization Inpatient DSM-IV Dx: schizoaffective d/o, bipolar type Clinical Impression: 67 y.o. single, white female with a history of schizoaffective DO, bipolar type who was brought to the ED on a 9.45 due to disruptive, agitated behavior in the community and inability to care for herself. Plan - Plan Treatment Plan: Name: LISSETTE ARTIS Birthdate: 1950 [id number] The patient is now court mandated for T.O.O. and we have started fluphenazine decanoate 25mg IM q2wks, augmented with oral fluphenazine 5mg PO qday. We will have an administrative hearing Friday, 09/24, to pursue transfer to the [facility]. Continue inpatient management. Continued Medication Management: Start Medication Medications: Current Medications Acetaminophen (Tylenol Tab*) 650 mg PO Q4H PRN PRN Reason: for pain; or Temp >101 F Al Hydrox/Mg Hydrox/Simethicone (Maalox Plus*) 30 ml PO Q4H PRN PRN Reason: INDIGESTION Chlorpromazine HCl (Thorazine Tab*) 50 mg PO Q8H PRN PRN Reason: severe agitation Fluphenazine Decanoate (Prolixin Decanoate*) 25 mg IM Q14D [facility] Last Admin: 09/17/17 14:19 Dose: 25 mg Fluphenazine HCl (Prolixin Tab*) 5 mg PO DAILY [facility] Last Admin: 09/22/17 09:20 Dose: 5 mg Lorazepam (Ativan Tab(*)) 0.5 mg PO Q6H PRN PRN Reason: anxiety/agitation Last Admin: 09/15/17 13:50 Dose: 0.5 mg Multivitamins (Theragran Tab*) 1 tab PO DAILY [facility] Last Admin: 09/22/17 09:20 Dose: Not Given Throat Lozenges (Chloraseptic Nikita*) 1 nikita PO Q2H PRN PRN Reason: SORE THROAT - Discharge Plan Discharge Plan: Consider Longer Term Tx
[2017-09-23] MEDS: fluPHENAZine HCL TAB* 5 MG PO SCH (09:08)
[2017-09-23] MEDS: Vitamin THERAPEUTIC TAB PO SCH (09:14)
[2017-09-24] MEDS: fluPHENAZine HCL TAB* 5 MG PO SCH (09:21)
[2017-09-24] MEDS: Vitamin THERAPEUTIC TAB PO SCH (09:21)
--- NOTE | 2017-09-24 12:02 | PN ---
Subjective - Subjective Date of Service: 09/24/17 Service Type: [id number] Hosp care 15 min low complexity Subjective: Lissette is seen today for her administrative hearing as the hospital moves forward with our plan to get her transferred to longer-term treatment at a [facility]. She is bizarre, hyperverbal and delusional, stating that she is a [facility] and that this clinician is not a physician, but rather a colonel in the [employer]. She demonstrates rambling speech and hypergraphic writing, bringing in harrison of paperwork she calls "affidavits" to the hearing. She continues to display purposeless movements consistent with Tardive Dyskinesia. Objective - Appearance Appearance: Well Developed/Nourished Dysmorphic Features: No Hygiene: Normal Grooming: Fairly Well Kept - Behavior Psychomotor Activities: Normal Exhibits Abnormal Movement: Yes - Attitude and Relatedness Attitude and Relatedness: Psychotically Related Eye Contact: Fair - Speech Quality: Pressured Latencies: Short Quantity: Copious - Mood Patient's Decription of Mood: "Great" - Affect Observed Affect: Expansive Affect Consistent with: Euphoria - Thought Process Patient's Thought Process: Filght of Ideas Thought Content: Yes Paranoid Ideation, No Passive Wish, No Suicidal Planning, No Homicidal Ideation - Sensorium Experiencing Hallucinations: Yes Type of Hallucinations: Visual: No, Auditory: Yes, Command: No - Level of Consciousness Level of Consciousness: Alert Orientation: Yes Intact, Yes Orientated to Time, Yes Orientated to Place, Yes Orientated to Person - Impulse Control Impulse Control: Poor - Insight and Judgement Insight and Judgement: Impaired - Group Participation Particating in Group Activities: No - Medication Management Medication Management Adherence: Yes Assessment - Assessment Merits Inpatient Hospitalization: For Immediate Safety, For Stabilization Inpatient DSM-IV Dx: schizoaffective d/o, bipolar type Clinical Impression: 67 y.o. single, white female with a history of schizoaffective DO, bipolar type who was brought to the ED on a 9.45 due to disruptive, agitated behavior in the community and inability to care for herself. Plan - Plan Treatment Plan: Name: LISSETTE ARTIS Birthdate: 1950 [id number] The patient is now court mandated for T.O.O. and we have started fluphenazine decanoate 25mg IM q2wks, augmented with oral fluphenazine 5mg PO qday. We will increase oral fluphenazine to 10mg daily and continue to pursue transfer to the [facility]. Continue inpatient management. Continued Medication Management: Start Medication Medications: Current Medications Acetaminophen (Tylenol Tab*) 650 mg PO Q4H PRN PRN Reason: for pain; or Temp >101 F Al Hydrox/Mg Hydrox/Simethicone (Maalox Plus*) 30 ml PO Q4H PRN PRN Reason: INDIGESTION Chlorpromazine HCl (Thorazine Tab*) 50 mg PO Q8H PRN PRN Reason: severe agitation Fluphenazine Decanoate (Prolixin Decanoate*) 25 mg IM Q14D [facility] Last Admin: 09/17/17 14:19 Dose: 25 mg Fluphenazine HCl (Prolixin Tab*) 5 mg PO DAILY [facility] Last Admin: 09/24/17 09:21 Dose: 5 mg Lorazepam (Ativan Tab(*)) 0.5 mg PO Q6H PRN PRN Reason: anxiety/agitation Last Admin: 09/15/17 13:50 Dose: 0.5 mg Multivitamins (Theragran Tab*) 1 tab PO DAILY [facility] Last Admin: 09/24/17 09:21 Dose: Not Given Throat Lozenges (Chloraseptic Nikita*) 1 nikita PO Q2H PRN PRN Reason: SORE THROAT - Discharge Plan Discharge Plan: Consider Longer Term Tx
[2017-09-25 08:13] VITALS: BP 126/70
[2017-09-25] MEDS ORDERED: fluPHENAZine HCL TAB* 5 MG PO SCH (09:00)
[2017-09-25] MEDS: Vitamin THERAPEUTIC TAB PO SCH (09:20)
--- NOTE | 2017-09-25 11:42 | PN ---
MHU: Group Therapy Note - Service Type Service Type: [id number] Group Psychotherapy - Group Psychotherapy Note: [place] attended [facility] programming this morning. 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 She otherwise listened to presented discussion and peer conversation. She presented with fair affect and initiated discussion.
--- NOTE | 2017-09-25 16:46 | DS ---
DATE OF ADMISSION: 09/03/2017. DATE OF DISCHARGE: 09/25/2017. DISCHARGE DIAGNOSES: AXIS I: Schizoaffective disorder, bipolar type. AXIS II: Deferred. AXIS III: No active problems. AXIS IV: Severe, primary support stressors. AXIS V: At the time of admission was 30 and at the time of discharge is 40. CONDITION AT THE TIME OF DISCHARGE: Guarded. 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 The corona ent has been unable to collaborate with the treatment team on any type of safe or reality based disch arge planning. Although she is taking medications by virtual of the court's treatment over objection order, she does not seem to have benefited much from antipsychotic therapy at this point and we feel that she would certainly benefit from longer term treatment in the state psychiatric setting. For t his reason, we have referred her to the [facility] in [place], [place] where Dr. aPez is the accepting clinician. MENTAL STATUS EXAM AT THE TIME OF DISCHARGE: The patient is a petite, aging white female wearing a g ray skirt and a pink sleeveless shirt who is clean and fairly well groomed. She is irritable, edgy, hyperverbal with pressured speech. She is somewhat dysarthric and she does display some abnormal mov ements consistent with chronic tardive dyskinesia. Mood is irritable with a labile affect. Thought process is disorganized, rambling, illogical. Thought content is delusional with persecutory and gra ndiose delusions. She denies suicidal or homicidal ideations. She denies auditory or visual hallucin ations, although at times she appears to be responding to internal stimuli. Insight and judgment are poor given her insistence on being discharged immediately. Cognitively, she is awake and alert with what would appear to be an average intellect. DISCHARGE INSTRUCTIONS TO THE PATIENT: A. Medications: She is on Fluphenazine Decanoate 25 mg IM q. 2 weeks, next injection is due 10/01/2017. In addition, she takes oral Fluphenazine 10 mg p.o. daily. B. Diet: Regular. C. Activity: As per [facility] protocol. The patient is a nonsmoker. There are no laboratory or diagnost ic studies pending at the time of discharge. D. Follow-up care: The patient will be a direct transfer to the [facility] whe she will receive continued intensive inpatient services in a locked and secure setting. That romain gerard will be responsible for all her outpatient follow-up appointments at her time of discharge. E. Substance abuse follow-up: Nonapplicable. HOSPITAL COURSE - PART A: Reason for admission: The patient is a 67-year-old, , white female with a history of schizoaffective disorder and repeated acute psychiatric hospitalizations who was b rought in on legal paperwork as signed by the [facility] due to disrup tive agitated behavior in the community and inability to care for herself. Apparently she arrived ra nting that she was a member of [employer] and had been taken here illegally and involuntarily. 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 She went on to state that the federal supreme court had deemed her competent and therefore any in voluntary hospitalization documents were invalid. She was agitated at times, but consistently refused offers of p.o. antipsychotic or anxiolytic medications. We were able to reach [facility], but discovered from them that she had not been actively receiving services since the year of 2012. HOSPITAL COURSE - PART B: Psychiatric treatment rendered: The patient was admitted to the [facility] where she was placed on q.15 minute checks for her own safety. We initiated a trial of Fluphenazine which is something she has done well on in the past, although she steadfastly refused this. Because of her continued refusal to accept treatment and her inability to stabilize with more conservative means, h er case was transferred from the psychiatric nurse practitioner Marialuisa Carter to psychiatrist Dr. Cresencio Head. At that time the hospital initiated court proceedings for treatment over the patient's objection. We did [facility] jhonatan powers in the hospital's favor. At that time, the patient was started on oral Fluphenazine and she rece ived her first dose of Fluphenazine Decanoate 25 mg IM on Wednesday, the 17 of September. She vanessa ated her medications well and we were able to increase her oral Fluphenazine from 5 to 10 mg daily. Despite these changes, she continued to be hyperverbal, easily agitated, requiring prn medications at times to reduce her agitation. She demonstrated no benefit in terms of reduced delusions and was no t able to safety plan or work with staff in terms of creating a safe discharge option. For these val sons, she was referred to the [facility] and was accepted by the [facility]. [id number] #: [id number]
== END 2017-09-25 16:05 | DRG 885 ==
LOC: ED 15:20 → BSU 09-03 11:52
PROVIDERS: ADMIT Psychiatry & Neurology Psychiatry; ATTEND Psychiatry & Neurology Psychiatry
PROC: GZHZZZZ Group Psychotherapy (ICD-10-PCS; principal; 2017-09-03)
DX: F25.0 Schizoaffective disorder, bipolar type (principal); E78.00 Pure hypercholesterolemia, unspecified; G24.01 Drug induced subacute dyskinesia; K21.9 Gastro-esophageal reflux disease without esophagitis; M17.11 Unilateral primary osteoarthritis, right knee; F41.9 Anxiety disorder, unspecified; H26.9 Unspecified cataract; F32.9 Major depressive disorder, single episode, unspecified; Z87.891 Personal history of nicotine dependence
CPT/HCPCS: 36415; 80053; 80320; 80329; 84443; 85025; 90853; 99222; 99231; 99238; A9270-GY; G0480; J1200; J1630; J2060; J2680

== ENCOUNTER 2018-12-23 11:40 | Inpatient (IN) | payer MEDICARE, OTHER ==
[2018-12-23] MEDS ORDERED: Ziprasidone IM INJ* 20 MG/ML VIAL IM ONE ×2 (12:07→12:09)
[2018-12-23] MEDS ORDERED: Sterile Water for Inj* 10 ML ONE (12:09)
--- NOTE | 2018-12-23 12:15 | ED ---
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 Upon entering the room and introducing myself as Dr. Burden, pt asked "what kind of doctor?" I stated "medical doctor" She said, "no you're not. I'm a doctor. I went to [place]". The pt stated in a loud voice Thats a lie, youre from [place] and Dr. Brandy Burden is not your name. She also states she graduated from [place] in 2000. 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 She reports no pain besides pain of the spirit. Per the [facility] medical records pt has a hx schizoaffective disorder and hx multiple psychiatric admissions to [facility]. LEVEL 5 CAVEAT: The pt's full hx and physical is unobtainable due to the pt's present mental status. Home Medications Medication Instructions Recorded Confirmed Type NK [No Home Medications Reported] 12/23/18 12/23/18 History - History Of Current Complaint Chief Complaint: EDMentalHealth Time Seen by Provider: 12/23/18 11:58 Hx Obtained From: Patient, Medical Records - [facility], Other: - [facility] . Hx From Patient Unobtainable Due To: Altered Mental Status Onset/Duration: Still Present, Other - unknown onset, pt did not articulate Timing: Constant Severity Initially: Moderate Severity Currently: Moderate Character: Manic Aggravating Factor(s): Nothing, Other - pt states she does not take any medications Alleviating Factor(s): Nothing Associated Signs And Symptoms: Positive: Confused, Hallucinating, Paranoid Behavior Related History: Positive For: Prior Psychiatric Issues - Allergies/Home Medications Allergies/Adverse Reactions: Allergies Allergy/AdvReac Type Severity Reaction Status Date / Time SEASONAL HAYFEVER Allergy Unknown Uncoded 12/23/18 16:44 Reaction Details Home Medications: Home Medications NK [No Home Medications Reported] 12/23/18 [History Confirmed 12/23/18] PMH/Surg Hx/FS Hx/Imm Hx Previously Healthy: No - LEVEL 5 CEVAT: Pt's full hx and physical unobtainable due to AMS. Cardiovascular History: Reports: Hx Hypercholesterolemia GI History: Reports: Hx Gastroesophageal Reflux Disease Musculoskeletal History: Reports: Hx Arthritis - RIGHT KNEE AND LEG Denies: Hx Osteoporosis Sensory History: Reports: Hx Cataracts - BILATERAL, Hx Contacts or Glasses - GLASSES Denies: Hx Hearing Aid Opthamlomology History: Reports: Hx Cataracts - BILATERAL, Hx Contacts or Glasses - GLASSES Psychiatric History: Reports: Hx Anxiety, Hx Depression, Hx Inpatient Treatment , Hx Community Mental Health Tx, Hx Bipolar Disorder, Other Psychiatric Issues/ Disorders - schizoaffective - Cancer History Hx Chemotherapy: No Hx Radiation Therapy: No - Surgical History Surgery Procedure, Year, and Place: FACIAL SURGERY A CHILD TIMES 2. Hx Anesthesia Reactions: No Infectious Disease History: No Infectious Disease History: Denies: Traveled Outside the [place] in Last 30 Days - Family History Known Family History: Positive: Other - LEVEL 5 CAVEAT: FHX LIMITED BY MENTAL STATE - Social History Alcohol Use: None Alcohol Amount: 1 beer Q 2 weeks Hx Substance Use: No Substance Use Type: Reports: None Hx Tobacco Use: Yes Smoking Status (MU): Former Smoker Type: Cigarettes Amount Used/How Often: 2 PPD Length of Time of Smoking/Using Tobacco: 10-12 YEARS Have You Smoked in the Last Year: No Review of Systems - ROS Summary Review of Systems Summary: LEVEL 5 CAVEAT: The pt's full hx and physical is unobtainable due to the pt's present mental status. Negative: Fever Negative: Myalgia Skin: Negative Positive: Other - "pain of the spirit" All Other Systems Reviewed And Are Negative: Yes Physical Exam - Summary Physical Exam Summary: Appearance: chronically ill-appearing, severe emotional distress, well-nourished , speaking in loud voice, kneeling on stretcher, invading personal space Skin: Warm, color reflects adequate perfusion, dry Head: Normal Head/Face inspection, atraumatic Eyes: Conjunctiva clear ENT: Normal inspection Neck: Supple, no nodes, no JVD Respiratory: Lungs clear, normal breath sounds, no respiratory distress Cardio: RRR, No murmur, pulses normal, brisk capillary refill Abdomen: Soft, nontender Bowel sounds: Present Musculoskeletal: Strength Intact/ROM intact, no calf tenderness, no edema. Psychological: agitated, grandiose, argumentative, threatening to myself, tangential Neuro: Alert, muscle tone normal, no focal deficit Triage Information Reviewed: Yes Vital Signs On Initial Exam: Initial Vitals Temp Pulse Resp BP Pulse Ox 98.7 F 109 17 167/100 95 12/23/18 11:43 12/23/18 11:43 12/23/18 11:43 12/23/18 11:43 12/23/18 11:43 Vital Signs Reviewed: Yes Completion Of Physical Exam Limited Due To: Altered Mental Status, Level 5 Diagnostics - Vital Signs Vital Signs Temp Pulse Resp BP Pulse Ox 12/23/18 11:43 98.7 F 109 17 167/100 95 - Laboratory Result Diagrams: 12/23/18 15:14 12/23/18 15:14 Lab Statement: Any lab studies that have been ordered have been reviewed, and results considered in the medical decision making process. Re-Evaluation - Re-Evaluation 1st re-eval Re-Evaluation Time: 13:59 Change: Unchanged Comment: Pt is still acting psychotic, and has been medicated with Geodon without incidence. Second Eval Re-Evaluation Time: 14:30 Change: Improved Comment: Resting quietly on stretcher. Cooperative with medical evaluation prior to psychiatric . admission per Dr. Head. 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 Upon entering the room and introducing myself, the pt stated in a loud voice Thats a lie, youre from [place] and Dr. Brandy Burden is not your name. She also states she graduated from [employer] in 2000. 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 She reports no pain besides pain of the spirit. Upon examination, the pt was kneeling on the bed and was invasive of personal space, and continuously used a loud voice to speak with me after being prompted to quiet down. LEVEL 5 CAVEAT: The pt's full hx and physical is unobtainable due to the pt's present mental status. For pt's safety and staff safety and stabilization, after presentation of pt's case to Dr. Head by psychiatric hebrew professor, Srinivas RN, pt is admitted on 9.39 status and is medicated with Geodon IM. Pt tolerated the injection without incident, and was subsequently cooperative with the remaining medical evaluation. Pt was cleared for admission to [facility], dx acute psychosis, schizoaffective disorder. - Differential Dx/Clinical Impression Differential Diagnosis/HQI/PQRI: Positive: Acute Psychosis, Anxiety, Bipolar Disorder Provider Diagnosis: Acute psychosis, Schizoaffective disorder Discharge - Sign-Out/Discharge Documenting (check all that apply): Patient Departure - Discharge Plan Condition: Stable Disposition: PSYCHIATRIC FACILITY[facility] - Billing Disposition and Condition Condition: STABLE Disposition: Psychiatric Facility [facility] - Attestation Statements Document Initiated by Scribe: Yes Documenting Scribe: Suzy King Provider For Whom Boaz is Documenting (Include Credential): Dr. Brandy Burden MD. Scribe Attestation: Suzy Mckeon, scribed for Dr. Brandy Burden MD. on 01/02/19 at 0019. Scribe Documentation Reviewed: Yes Provider Attestation: The documentation as recorded by the scribSuzy arias accurately reflects the service I personally performed and the decisions made by , Dr. Brandy Burden MD. Status of Scribe Document: Viewed
[2018-12-23] MEDS ORDERED: Al Hydrox/Mg Hydrox/Simet LIQ* 30 ML UDC PO PRN (15:19)
[2018-12-23] MEDS ORDERED: Acetaminophen TAB* 325 MG PO PRN (15:19)
[2018-12-23] MEDS ORDERED: LORazepam TAB(*) 1 MG PO PRN (15:21)
[2018-12-23] MEDS ORDERED: Haloperidol TAB* 5 MG PO PRN (15:21)
[2018-12-23 15:40] LABS: ALT 17 U/L (7-52); AST 21 U/L (13-39); Albumin 4.2 g/dL (3.2-5.2); Albumin/Globulin Ratio 1.9 (1-3); Alkaline Phosphatase 75 U/L (34-104); Anion Gap 8 mmol/L (2-11); BUN/Creatinine Ratio 22.4 (8-20); Blood Urea Nitrogen 17 mg/dL (6-24); CO2 Carbon Dioxide 25 mmol/L (22-32); Calcium 9.2 mg/dL (8.6-10.3); Chloride 110 mmol/L (101-111); Creatine Kinase 75 U/L (10-223); EGFR African American 91.3 (>60); EGFR Non-African American 75.5 (>60); Globulin 2.2 g/dL (2-4); Glucose 129 mg/dL (70-100); Potassium 3.7 mmol/L (3.5-5.0); Sodium 143 mmol/L (135-145); Total Protein 6.4 g/dL (6.4-8.9)
[2018-12-23 15:48] LABS: ABS Basophils 0 10^3/ul (0-0.2); ABS Eosinophils 0 10^3/ul (0-0.6); ABS Monocytes 0.2 10^3/ul (0-0.8); ABS Neutrophils 2.6 10^3/ul (1.5-7.7); ABS Nucleated RBC 0 10^3/ul; Eosinophil % 0.8 %; Hematocrit 42 % (33-41); Lymphocyte % 26.5 %; Mean Corpuscular HGB Conc 34 g/dL (31-36); Mean Corpuscular Hemoglobin 29 pg (27-31); Mean Corpuscular Volume 88 fL (80-97); Mean Platelet Volume 9.1 fL (7.4-10.4); Nucleated Red Blood Cells % 0.2; Platelet Count 151 10^3/uL (150-450); Red Blood Count 4.78 10^6 /uL (3.70-4.87); Red Cell Distribution Width 14 % (10.5-15); White Blood Count 3.9 10^3/uL (3.5-10.8)
[2018-12-23 16:02] LABS: TSH (Thyroid Stimulating Horm) 1.06 mcIU/mL (0.34-5.60)
[2018-12-23 16:05] LABS: Acetaminophen < 15 mcg/mL; Alcohol < 10 mg/dL (<10); Salicylate < 2.50 mg/dL (<30)
[2018-12-23 16:27] LABS: Urine Appearance Clear; Urine Bilirubin Negative (Negative); Urine Blood Negative (Negative); Urine Color Colorless; Urine Glucose Negative (Negative); Urine Ketones Negative (Negative); Urine Nitrite Negative (Negative); Urine Protein Negative (Negative); Urine Specific Gravity 1.003 (1.010-1.030); Urine Urobilinogen Negative (Negative)
[2018-12-23 17:06] LABS: Barbiturates Urine Screen None Detected (None Detect); Benzodiazepine Urine Screen None Detected (None Detect); Urine Cannabinoids Screen None Detected (None Detect)
[2018-12-24 07:01] LABS: HDL Cholesterol 43.1 mg/dL
[2018-12-24] MEDS: fluPHENAZine HCL TAB* 5 MG PO SCH (08:55)
--- NOTE | 2018-12-24 12:07 | HP ---
PSYCHIATRIC HISTORY AND PHYSICAL: DATE OF ADMISSION: 12/23/18 JUSTIFICATION FOR ADMISSION: The patient is in need of 24-hour supervision and care secondary to inability to care for herself in a less restrictive setting due to acute psychosis. CHIEF COMPLAINT: "I would like to add Zaria Russell to my visitor's list." HISTORY OF PRESENT ILLNESS: The patient is a 68-year-old single white female with a history of schizoaffective disorder, bipolar type, who was brought to the emergency room directly by the local [place] police precinct where she had appeared with delusions demanding that they place all the employees in [employer]. Apparently, she has been obstructing local law enforcement agencies from carrying out their responsibilities by continually calling the police and showing up uninvited to local stations with delusional rants. 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 She thinks that she was brought in by the [facility]. She is denying any recent psychiatric treatment saying that she has an order from the [place] signed by Chief Justice Matthew Wells indicating that she is not to receive psychiatric care including medications. We know that she was discharged from our unit in September 2017 directly to the [facility], but it is uncertain how long she was hospitalized there. Apparently, she was referred to the [facility] here in [place], but at some point stopped taking medications and stopped receiving services from them. We know that she has done well in the past on fluphenazine. PAST PSYCHIATRIC HISTORY: The patient has a long history of documented schizoaffective disorder with treatment at [facility]. She was most recently hospitalized at [facility] from September 2017 until her discharge in June 2018. She received treatment from the [facility] team until firing them in July 2018 and has been untreated since. Typically, she is medicated with fluphenazine. She has had a history of 5 prior hospitalizations at [facility] between 2007 and 2016. Prior to this, she lived in her [place] and it is uncertain what her psychiatric history was there. SUBSTANCE ABUSE HISTORY: She denies abuse of alcohol or illicit substances. She is a former smoker who has long since quit the abuse of tobacco. PAST MEDICAL HISTORY: Significant for gastroesophageal reflux disease and hypercholesterolemia. CURRENT MEDICATIONS: None. ALLERGIES: She has no known drug allergies. FAMILY HISTORY: Unknown. SOCIAL HISTORY: She apparently lives alone in an apartment here in [place]. She receives social security and disability for mental illness. We have no record of her ever being or having children. 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 REVIEW OF SYSTEMS: Review of systems was performed in the emergency room. She denied at that time having headache, double vision, sore throat, cough, chest pain, difficulty breathing. Denied abdominal pain, nausea, vomiting, diarrhea, or constipation. Denied difficulty ambulating, enlarged lymph nodes, fevers, rashes, or changes in weight. PHYSICAL EXAMINATION VITAL SIGNS: Blood pressure is 132/84, heart rate 82, respiratory rate 15, temperature is 97.6 degrees Fahrenheit, oxygen saturations are 99% on room air. HEENT: Head is normocephalic, atraumatic. NECK: Supple. CHEST: Clear to auscultation bilaterally. CARDIAC: Exam reveals normal heart sounds. ABDOMEN: Soft and nontender. MUSCULOSKELETAL: Exam reveals a full range of motion in all 4 extremities with no edema. NEUROLOGIC: She is intact with no focal deficits. MENTAL STATUS EXAMINATION: The patient is an aging white female who appears to be clean, well groomed. She is wearing spectacles. She makes good eye contact. Speech is somewhat rambling. She speaks with a southern accent. Mood appears to be euthymic, slightly hyperthymic perhaps. Affect is expansive. Thought process at times goes from circumstantial to tangential. Thought content is highly delusional with beliefs that she is a [employer] police officer, a member of [employer], and a neurologist. She denies auditory or visual hallucinations. Denies suicidal or homicidal ideation. Insight and judgment appear to be markedly impaired given her refusal of treatment. Cognitively, she is awake and alert with what would appear to be an average intellect. DIAGNOSTIC STUDIES/LAB DATA: Labs: Complete metabolic panel is within normal limits with the exception of a slightly elevated glucose, which is 129. Complete blood count is similarly within normal limits. Urinalysis within normal limits. Urine drug screen negative for all substances tested. DIAGNOSES: Is as follows: [place] I: Schizoaffective disorder, bipolar type. [place] II: Deferred. IMPRESSION: The patient is a 68-year-old single white female with a history of schizoaffective disorder who is brought in emergently by the police after presenting to the local police precinct, making intrusive psychotic claims. She has been phoning law enforcement and going to their offices, disrupting their ability to maintain peace in the community. We do not feel that she is able to care for herself at this time. PLAN: The patient is admitted to the adult behavioral health unit and placed on q.15-minute checks for her own safety. We will resume a trial of fluphenazine 10 mg p.o. daily with the interest of resuming also her biweekly injection of fluphenazine decanoate at the dose of 50 mg q.2 weekly. While she is here, she is certainly encouraged to avail herself of all milieu activities. Given her well- documented history of nonadherence to treatment, it is likely that we will have to pursue an order for treatment over her objection and we may be in a position where she will require state hospitalization. [id number]/[facility] #: [id number] DANIELA
--- NOTE | 2018-12-24 12:16 | PN ---
Progress Note - Progress Note Date of Service: 12/24/18 Note: I was asked to see the patient and then subsequently sign a 2pc form. The patient was found to have flight of ideas. 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 She asked if I could see inside her brain since I am an health communications specialist. 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 She states she can see inside my head because of her 3rd eye. The patient is disorganized and will benefit from ongoing psychiatric care.
[2018-12-25] MEDS: fluPHENAZine HCL TAB* 5 MG PO SCH (09:18)
--- NOTE | 2018-12-25 13:28 | PN ---
Subjective - Subjective Date of Service: 12/25/18 Service Type: 04469 Hosp care 15 min low complexity Subjective: Lissette is found laying on her stomach in bed talking to herself. She has spilled coffee all over her blanket and sheets. 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 The patient insists that Chief Justice Matthew Wells has rendered a court ruling absolving her from all psychiatric treatment. "Have you not read the court papers?" At one point she starts talking in a strange, likely fictitious language. She indicates that I told her I was discharging her today. "You said so in your mind." Objective - General Observations Appearance: Unkempt Appears Stated Age: Yes Stature: WNL Posture: WNL Eye Contact: Average Behavior/Activity: Peculiar - Interaction Observations Attitude Towards Examiner: Demanding Stated Mood: Irritable Affect: Full Speech Pattern/Tone: Pressured Thought Process: Tangential Perception: WNL Thought Content: Grandiose Hallucination Type: None Delusion Type: Thought Broadcasting, Grandeur - Cognitive Function Orientation: A&O x 4 Level of Consciousness: Awake Cognition: WNL Estimated Intelligence: Normal Insight: Difficulty Acknowledging Presence of Psyciatric Problems Judgment Within Normal Limits: No Ability to Make Reasonable Decisions: Teteely Impaired - Medication Compliance Cooperative with Inpatient Medication Regimen: No - Group Participation Participates in Group Activities: No Assessment - Assessment Merits Inpatient Hospitalization: For Immediate Safety, For Stabilization Inpatient DSM-V Dx: F25.0 Clinical Impression: 68 y.o. single, white female with a history of chronic schizoaffective disorder , bipolar type, brought to the hospital on a 9.41 involuntary legal status from the [facility] Police precinct, where she had earlier shown up, ranting and creating a disturbance. BSU: Problem List - Patient Problems (1) Schizoaffective disorder, bipolar type Current Visit: No Status: Acute Priority: High Code(s): F25.0 - SCHIZOAFFECTIVE DISORDER, BIPOLAR TYPE SNOMED Code(s): 27972691 Plan - Plan Treatment Plan: Name: LISSETTE ARTIS Birthdate: 1950 [id number] We will resume treatment with fluphenazine 10mg PO qday in preparation for restarting the long-acting decanoate version of this medication. She is refusing treatment and we have initiated T.O.O. proceedings, for which we await a court date. Continue inpatient treatment. Continued Medication Management: Start Medication Medications: Current Medications Acetaminophen (Tylenol Tab*) 650 mg PO Q4H PRN PRN Reason: for pain; or Temp >101 F Al Hydrox/Mg Hydrox/Simethicone (Maalox Plus*) 30 ml PO Q4H PRN PRN Reason: INDIGESTION Fluphenazine HCl (Prolixin Tab*) 10 mg PO DAILY TAHIRA Last Admin: 12/25/18 09:18 Dose: Not Given Haloperidol (Haldol Tab*) 5 mg PO Q6H PRN PRN Reason: AGITATION Lorazepam (Ativan Tab(*)) 1 mg PO Q6H PRN PRN Reason: ANXIETY - Discharge Plan Discharge Plan: Consider Longer Term Tx Lab Results - Lab Results Lab Results: 12/23/18 12/23/18 12/23/18 15:14 15:14 16:10 WBC 3.9 RBC 4.78 Hgb 14.0 Hct 42 H MCV 88 MCH 29 MCHC 34 RDW 14 Plt Count 151 MPV 9.1 Neut % (Auto) 66.2 Lymph % (Auto) 26.5 Waller % (Auto) 6.0 Eos % (Auto) 0.8 Baso % (Auto) 0.5 Absolute Neuts (auto) 2.6 Absolute Lymphs (auto) 1.0 Absolute Monos (auto) 0.2 Absolute Eos (auto) 0 Absolute Basos (auto) 0 Absolute Nucleated RBC 0 Nucleated RBC % 0.2 Sodium 143 Potassium 3.7 Chloride 110 Carbon Dioxide 25 Anion Gap 8 BUN 17 Creatinine 0.76 Est GFR ( Amer) 91.3 Est GFR (Non-Af Amer) 75.5 BUN/Creatinine Ratio 22.4 H Glucose 129 H Hemoglobin A1c Calcium 9.2 Total Bilirubin 0.40 AST 21 ALT 17 Alkaline Phosphatase 75 Total Creatine Kinase 75 Total Protein 6.4 Albumin 4.2 Globulin 2.2 Albumin/Globulin Ratio 1.9 Triglycerides Cholesterol LDL Cholesterol HDL Cholesterol TSH 1.06 Urine Color Colorless Urine Appearance Clear Urine pH 7.0 Ur Specific [place] 1.003 L Urine Protein Negative Urine Ketones Negative Urine Blood Negative Urine Nitrate Negative Urine Bilirubin Negative Urine Urobilinogen Negative Ur Leukocyte Esterase Negative Urine Glucose Negative Salicylates < 2.50 Urine Opiates Screen Acetaminophen < 15 Ur Barbiturates Screen Ur Phencyclidine Scrn Ur Amphetamines Screen U Benzodiazepines Scrn Urine Cocaine Screen U Cannabinoids Screen Serum Alcohol < 10 12/23/18 12/24/18 12/24/18 16:10 06:36 06:36 WBC RBC Hgb Hct MCV MCH MCHC RDW Plt Count MPV Neut % (Auto) Lymph % (Auto) Waller % (Auto) Eos % (Auto) Baso % (Auto) Absolute Neuts (auto) Absolute Lymphs (auto) Absolute Monos (auto) Absolute Eos (auto) Absolute Basos (auto) Absolute Nucleated RBC Nucleated RBC % Sodium Potassium Chloride Carbon Dioxide Anion Gap BUN Creatinine Est GFR ( Amer) Est GFR (Non-Af Amer) BUN/Creatinine Ratio Glucose Hemoglobin A1c 5.4 Calcium Total Bilirubin AST ALT Alkaline Phosphatase Total Creatine Kinase Total Protein Albumin Globulin Albumin/Globulin Ratio Triglycerides 46 Cholesterol 126 LDL Cholesterol 74 HDL Cholesterol 43.1 TSH Urine Color Urine Appearance Urine pH Ur Specific [place] Urine Protein Urine Ketones Urine Blood Urine Nitrate Urine Bilirubin Urine Urobilinogen Ur Leukocyte Esterase Urine Glucose Salicylates Urine Opiates Screen None detected Acetaminophen Ur Barbiturates Screen None detected Ur Phencyclidine Scrn None detected Ur Amphetamines Screen None detected U Benzodiazepines Scrn None detected Urine Cocaine Screen None detected U Cannabinoids Screen None detected Serum Alcohol
[2018-12-26] MEDS: fluPHENAZine HCL TAB* 5 MG PO SCH (09:35)
[2018-12-27] MEDS: fluPHENAZine HCL TAB* 5 MG PO SCH (11:40)
--- NOTE | 2018-12-27 21:52 | PN ---
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 People will be punished if they try to give her any meds. And her delusion continues. She is pressured, illogical and irritable when interrupted. Objective - General Observations Appearance: Disheveled, Unkempt Appears Stated Age: Yes Stature: WNL Posture: WNL Behavior/Activity: Accelerated, Agitated - Interaction Observations Attitude Towards Examiner: Defensive, Evasive, Dismissive Stated Mood: Dysphoric, Expansive, Irritable Affect: Full Speech Pattern/Tone: Excessive, Loud Volume Thought Process: Tangential, Filght of Ideas, Over Inclusive Thought Content: Grandiose Delusion Type: Grandeur - Cognitive Function Orientation: Person, Place Level of Consciousness: Alert Cognition: Impaired Cognition Estimated Intelligence: Borderline Range Insight: Difficulty Acknowledging Presence of Psyciatric Problems Judgment Within Normal Limits: No Ability to Make Reasonable Decisions: Serverely Impaired - Medication Compliance Cooperative with Inpatient Medication Regimen: No - Group Participation Participates in Group Activities: No Assessment - Assessment Merits Inpatient Hospitalization: For Immediate Safety, For Stabilization, To Initiate Treatment, Pending Safe DC Plan Inpatient DSM-V Dx: F25.0 Clinical Impression: 68 y.o. single, white female with a history of chronic schizoaffective disorder , bipolar type, brought to the hospital on a 9.41 involuntary legal status from the [facility] precinct, where she had earlier shown up, ranting and creating a disturbance. Plan - Plan Treatment Plan: Name: LISSETTE ARTIS Birthdate: 1950 [id number] We will resume treatment with fluphenazine 10mg PO qday in preparation for restarting the long-acting decanoate version of this medication. She is refusing treatment and we have initiated T.O.O. proceedings, for which we await a court date. Continue inpatient treatment. Medications: Current Medications Acetaminophen (Tylenol Tab*) 650 mg PO Q4H PRN PRN Reason: for pain; or Temp >101 F Al Hydrox/Mg Hydrox/Simethicone (Maalox Plus*) 30 ml PO Q4H PRN PRN Reason: INDIGESTION Fluphenazine HCl (Prolixin Tab*) 10 mg PO DAILY TAHIRA Last Admin: 12/27/18 11:40 Dose: Not Given Haloperidol (Haldol Tab*) 5 mg PO Q6H PRN PRN Reason: AGITATION Lorazepam (Ativan Tab(*)) 1 mg PO Q6H PRN PRN Reason: ANXIETY - Discharge Plan Discharge Plan: Consider Longer Term Tx
[2018-12-28] MEDS: fluPHENAZine HCL TAB* 5 MG PO SCH (09:00)
--- NOTE | 2018-12-28 11:23 | PN ---
Subjective - Subjective Date of Service: 12/28/18 Service Type: 31636 Hosp care 15 min low complexity Subjective: Lissette is delusional and irritable, demanding discharge. "Have you not seen the paperwork? It was delivered from, [facility]. It absolves me from having any mental illness or psychiatric disorders or taking psychotropic, , medications." She has been appropriate on the unit but not attending groups. Objective - General Observations Appearance: Unkempt Appears Stated Age: No Stature: WNL Posture: WNL Eye Contact: Average Behavior/Activity: Peculiar - Interaction Observations Attitude Towards Examiner: Uncooperative Attitude Towards Parent/Guardian: Demanding Stated Mood: Dysphoric Speech Pattern/Tone: Rambling Thought Process: Over Inclusive Perception: WNL Thought Content: Paranoid Hallucination Type: None Delusion Type: Grandeur - Cognitive Function Orientation: A&O x 4 Level of Consciousness: Awake Cognition: WNL Estimated Intelligence: Normal Insight: Difficulty Acknowledging Presence of Psyciatric Problems Judgment Within Normal Limits: No Ability to Make Reasonable Decisions: Serverely Impaired - Medication Compliance Cooperative with Inpatient Medication Regimen: No - Group Participation Participates in Group Activities: No Assessment - Assessment Merits Inpatient Hospitalization: For Immediate Safety, For Stabilization Inpatient DSM-V Dx: F25.0 Clinical Impression: 68 y.o. single, white female with a history of chronic schizoaffective disorder , bipolar type, brought to the hospital on a 9.41 involuntary legal status from the [facility] precinct, where she had earlier shown up, ranting and creating a disturbance. BSU: Problem List - Patient Problems (1) Schizoaffective disorder, bipolar type Current Visit: No Status: Acute Priority: High Code(s): F25.0 - SCHIZOAFFECTIVE DISORDER, BIPOLAR TYPE SNOMED Code(s): 65088638 Plan - Plan Treatment Plan: Name: LISSETTE ARTIS Birthdate: 1950 [id number] We will resume treatment with fluphenazine 10mg PO qday in preparation for restarting the long-acting decanoate version of this medication. She is refusing treatment and we have initiated T.O.O. proceedings, for which we await a court date. Continue inpatient treatment. Continued Medication Management: Start Medication Medications: Current Medications Acetaminophen (Tylenol Tab*) 650 mg PO Q4H PRN PRN Reason: for pain; or Temp >101 F Al Hydrox/Mg Hydrox/Simethicone (Maalox Plus*) 30 ml PO Q4H PRN PRN Reason: INDIGESTION Fluphenazine HCl (Prolixin Tab*) 10 mg PO DAILY TAHIRA Last Admin: 12/28/18 09:00 Dose: Not Given Haloperidol (Haldol Tab*) 5 mg PO Q6H PRN PRN Reason: AGITATION Lorazepam (Ativan Tab(*)) 1 mg PO Q6H PRN PRN Reason: ANXIETY - Discharge Plan Discharge Plan: Inpatient Hospitalization
[2018-12-29] MEDS: fluPHENAZine HCL TAB* 5 MG PO SCH (09:55)
--- NOTE | 2018-12-29 10:27 | PN ---
Subjective - Subjective Date of Service: 12/29/18 Service Type: [id number] Hosp care 15 min low complexity Subjective: Lissette remains delusional and refusing meds. She is often overheard talking to unseen others in her room. When asked about this she responds "I'm talking to my patients." She denies SI or HI. Objective - General Observations Appearance: Unkempt Appears Stated Age: Yes Stature: Short Posture: WNL Eye Contact: Average Behavior/Activity: WNL - Interaction Observations Attitude Towards Examiner: Mistrustful Stated Mood: Euthymic Affect: Full Speech Pattern/Tone: Rambling Thought Process: Disorganized Perception: WNL Thought Content: Grandiose Thought Process: Lethality: Paranoid Ideation Hallucination Type: Auditory Delusion Type: Grandeur - Cognitive Function Orientation: A&O x 4 Level of Consciousness: Awake Cognition: WNL Estimated Intelligence: Normal Ability to Make Reasonable Decisions: Serverely Impaired - Medication Compliance Cooperative with Inpatient Medication Regimen: No - Group Participation Participates in Group Activities: No Assessment - Assessment Merits Inpatient Hospitalization: For Immediate Safety, For Stabilization Inpatient DSM-V Dx: F25.0 Clinical Impression: 68 y.o. single, white female with a history of chronic schizoaffective disorder , bipolar type, brought to the hospital on a 9.41 involuntary legal status from the [facility] Police precinct, where she had earlier shown up, ranting and creating a disturbance. BSU: Problem List - Patient Problems (1) Schizoaffective disorder, bipolar type Current Visit: No Status: Acute Priority: High Code(s): F25.0 - SCHIZOAFFECTIVE DISORDER, BIPOLAR TYPE SNOMED Code(s): 02956373 Plan - Plan Treatment Plan: Name: LISSETTE ARTIS Birthdate: 1950 [id number] We will resume treatment with fluphenazine 10mg PO qday in preparation for restarting the long-acting decanoate version of this medication. She is refusing treatment and we have initiated T.O.O. proceedings, for which we await a court date. Continue inpatient treatment. Continued Medication Management: Start Medication Medications: Current Medications Acetaminophen (Tylenol Tab*) 650 mg PO Q4H PRN PRN Reason: for pain; or Temp >101 F Al Hydrox/Mg Hydrox/Simethicone (Maalox Plus*) 30 ml PO Q4H PRN PRN Reason: INDIGESTION Fluphenazine HCl (Prolixin Tab*) 10 mg PO DAILY TAHIRA Last Admin: 12/29/18 09:55 Dose: Not Given Haloperidol (Haldol Tab*) 5 mg PO Q6H PRN PRN Reason: AGITATION Lorazepam (Ativan Tab(*)) 1 mg PO Q6H PRN PRN Reason: ANXIETY - Discharge Plan Discharge Plan: Inpatient Hospitalization
--- NOTE | 2018-12-29 11:56 | PN ---
BSU: Group Therapy Note - Service Type Service Type: [id number] Group Psychotherapy - Cognitive Behavioral Group Therapy ( CBT):Patient was attentive and participatory in CBT programming this morning, and remained in good behavioral control. Patient expressed positive insights regarding relevant treatment interventions and goals.
[2018-12-30] MEDS: fluPHENAZine HCL TAB* 5 MG PO SCH (10:00)
--- NOTE | 2018-12-30 13:39 | PN ---
Subjective - Subjective Date of Service: 12/30/18 Service Type: 47142 Hosp care 15 min low complexity Subjective: Lissette has reportedly been making numerous, distracting phone calls to the local police force and the [facility] [place]. They have reached out to us to request our assistance in preventing her from disrupting their operations. 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 Objective - General Observations Appearance: Well Groomed Appears Stated Age: Yes Stature: Short Posture: WNL Eye Contact: Average Behavior/Activity: Stereotyped - Interaction Observations Attitude Towards Examiner: Defensive Stated Mood: Euthymic Affect: Full Speech Pattern/Tone: Garbled Thought Process: Disorganized Perception: WNL Thought Content: Grandiose Thought Process: Lethality: Paranoid Ideation Hallucination Type: Auditory Delusion Type: Grandeur - Cognitive Function Orientation: A&O x 4 Level of Consciousness: Awake Cognition: WNL Estimated Intelligence: Normal Insight: Difficulty Acknowledging Presence of Psyciatric Problems Judgment Within Normal Limits: No Ability to Make Reasonable Decisions: Serverely Impaired - Medication Compliance Cooperative with Inpatient Medication Regimen: No - Group Participation Participates in Group Activities: No Assessment - Assessment Merits Inpatient Hospitalization: For Immediate Safety, For Stabilization Inpatient DSM-V Dx: F25.0 Clinical Impression: 68 y.o. single, white female with a history of chronic schizoaffective disorder , bipolar type, brought to the hospital on a 9.41 involuntary legal status from the [facility] Police precinct, where she had earlier shown up, ranting and creating a disturbance. BSU: Problem List - Patient Problems (1) Schizoaffective disorder, bipolar type Current Visit: No Status: Acute Priority: High Code(s): F25.0 - SCHIZOAFFECTIVE DISORDER, BIPOLAR TYPE SNOMED Code(s): 02830417 Plan - Plan Treatment Plan: Name: LISSETTE ARTIS Birthdate: 1950 [id number] We will resume treatment with fluphenazine 10mg PO qday in preparation for restarting the long-acting decanoate version of this medication. She is refusing treatment and we have initiated T.O.O. proceedings, for which we await a court date. Continue inpatient treatment. Continued Medication Management: Start Medication Medications: Current Medications Acetaminophen (Tylenol Tab*) 650 mg PO Q4H PRN PRN Reason: for pain; or Temp >101 F Al Hydrox/Mg Hydrox/Simethicone (Maalox Plus*) 30 ml PO Q4H PRN PRN Reason: INDIGESTION Fluphenazine HCl (Prolixin Tab*) 10 mg PO DAILY TAHIRA Last Admin: 12/30/18 10:00 Dose: Not Given Haloperidol (Haldol Tab*) 5 mg PO Q6H PRN PRN Reason: AGITATION Lorazepam (Ativan Tab(*)) 1 mg PO Q6H PRN PRN Reason: ANXIETY - Discharge Plan Discharge Plan: Inpatient Hospitalization
[2018-12-31] MEDS: fluPHENAZine HCL TAB* 5 MG PO SCH (09:55)
[2018-12-31] MEDS ORDERED: Fluphenazine Decanoate* 25 MG/ML 5 ML VIAL IM ONE (16:30)
[2019-01-01] MEDS: fluPHENAZine HCL TAB* 5 MG PO SCH (14:35)
--- NOTE | 2019-01-01 17:23 | PN ---
Subjective - Subjective Date of Service: 01/01/19 Service Type: 22273 Hosp care 15 min low complexity Subjective: Lissette was taken to court yesterday for treatment over her objection hearings. 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 The hospital was granted an order for T.O.O and administered the first dose of fluphenazine decanoate this morning without incident. The patient remains irritable and delusional. Objective - General Observations Appearance: Unkempt Appears Stated Age: No Stature: Short Posture: WNL Eye Contact: Average Behavior/Activity: Stereotyped - Interaction Observations Attitude Towards Examiner: Cooperative Stated Mood: Irritable Affect: Blunted Speech Pattern/Tone: Garbled Thought Process: Disorganized Perception: WNL Thought Content: Grandiose Thought Process: Lethality: Paranoid Ideation Hallucination Type: Auditory Delusion Type: Grandeur - Cognitive Function Orientation: A&O x 4 Level of Consciousness: Awake Cognition: WNL Estimated Intelligence: Normal Insight: Difficulty Acknowledging Presence of Psyciatric Problems Judgment Within Normal Limits: No Ability to Make Reasonable Decisions: Serverely Impaired - Medication Compliance Cooperative with Inpatient Medication Regimen: Yes - Group Participation Participates in Group Activities: No Assessment - Assessment Merits Inpatient Hospitalization: For Immediate Safety, For Stabilization Inpatient DSM-V Dx: F25.0 Clinical Impression: 68 y.o. single, white female with a history of chronic schizoaffective disorder , bipolar type, brought to the hospital on a 9.41 involuntary legal status from the [facility] Police precinct, where she had earlier shown up, ranting and creating a disturbance. BSU: Problem List - Patient Problems (1) Schizoaffective disorder, bipolar type Current Visit: No Status: Acute Priority: High Code(s): F25.0 - SCHIZOAFFECTIVE DISORDER, BIPOLAR TYPE SNOMED Code(s): 21531336 Plan - Plan Treatment Plan: Name: LISSETTE ARTIS Birthdate: 1950 [id number] As per the direct marketing analyst's order, we have resumed treatment with fluphenazine decanoate 50mg IM q2wks (01/01). Continue inpatient treatment. Will likely require intermediate care at the State. Continued Medication Management: Start Medication Medications: Current Medications Acetaminophen (Tylenol Tab*) 650 mg PO Q4H PRN PRN Reason: for pain; or Temp >101 F Al Hydrox/Mg Hydrox/Simethicone (Maalox Plus*) 30 ml PO Q4H PRN PRN Reason: INDIGESTION Fluphenazine HCl (Prolixin Tab*) 10 mg PO DAILY TAHIRA Last Admin: 01/01/19 14:35 Dose: Not Given Haloperidol (Haldol Tab*) 5 mg PO Q6H PRN PRN Reason: AGITATION Lorazepam (Ativan Tab(*)) 1 mg PO Q6H PRN PRN Reason: ANXIETY - Discharge Plan Discharge Plan: Consider Longer Term Tx
[2019-01-02] MEDS: fluPHENAZine HCL TAB* 5 MG PO SCH (09:49)
[2019-01-03] MEDS: fluPHENAZine HCL TAB* 5 MG PO SCH (11:12)
[2019-01-04] MEDS ORDERED: FLUPHENAZINE 2.5 MG/ML IM PRN (11:57)
--- NOTE | 2019-01-04 12:01 | PN ---
Subjective - Subjective Date of Service: 01/04/19 Service Type: 33031 Hosp care 15 min low complexity Subjective: Lissette remains delusional and irritable. She is refusing the oral fluphenazine , despite operations label clerk's T.O.O. order. 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[employer]." Objective - General Observations Appearance: Well Groomed Appears Stated Age: Yes Stature: Short Posture: WNL Eye Contact: Average Behavior/Activity: Peculiar - Interaction Observations Attitude Towards Examiner: Cooperative Stated Mood: Euthymic Affect: Blunted Speech Pattern/Tone: Garbled Thought Process: Disorganized Perception: WNL Thought Content: Grandiose Thought Process: Lethality: Paranoid Ideation Hallucination Type: Auditory Delusion Type: Grandeur - Cognitive Function Orientation: A&O x 4 Level of Consciousness: Awake Cognition: WNL Estimated Intelligence: Normal Insight: Difficulty Acknowledging Presence of Psyciatric Problems Judgment Within Normal Limits: No Ability to Make Reasonable Decisions: Serverely Impaired - Medication Compliance Cooperative with Inpatient Medication Regimen: Partial - Group Participation Participates in Group Activities: No Assessment - Assessment Merits Inpatient Hospitalization: For Immediate Safety, For Stabilization Inpatient DSM-V Dx: F25.0 Clinical Impression: 68 y.o. single, white female with a history of chronic schizoaffective disorder , bipolar type, brought to the hospital on a 9.41 involuntary legal status from the [facility] Police precinct, where she had earlier shown up, ranting and creating a disturbance. BSU: Problem List - Patient Problems (1) Schizoaffective disorder, bipolar type Current Visit: No Status: Acute Priority: High Code(s): F25.0 - SCHIZOAFFECTIVE DISORDER, BIPOLAR TYPE SNOMED Code(s): 88475304 Plan - Plan Treatment Plan: Name: LISSETTE ARTIS Birthdate: 1950 [id number] As per the operations label clerk's order, we have resumed treatment with fluphenazine decanoate 50mg IM q2wks (01/01). She needs to take the oral 10mg of daily fluphenazine as well or receive it via IM injection. Will refer to the [facility]. Continued Medication Management: Start Medication Medications: Current Medications Acetaminophen (Tylenol Tab*) 650 mg PO Q4H PRN PRN Reason: for pain; or Temp >101 F Al Hydrox/Mg Hydrox/Simethicone (Maalox Plus*) 30 ml PO Q4H PRN PRN Reason: INDIGESTION Lorazepam (Ativan Tab(*)) 1 mg PO Q6H PRN PRN Reason: ANXIETY - Discharge Plan Discharge Plan: Consider Longer Term Tx
[2019-01-04] MEDS: fluPHENAZine HCL TAB* 5 MG PO SCH (13:54)
[2019-01-05] MEDS: fluPHENAZine HCL TAB* 5 MG PO SCH (09:39)
[2019-01-06] MEDS: fluPHENAZine HCL TAB* 5 MG PO SCH (08:47)
--- NOTE | 2019-01-06 11:22 | PN ---
BSU: Group Therapy Note - Service Type Service Type: [id number] Group Psychotherapy - Cognitive Behavioral Group Therapy ( CBT):Patient presented in CBT programming as disorganized and disruptive in discussion and needed repeated redirection to attend to presented materials.
--- NOTE | 2019-01-06 12:23 | PN ---
Subjective - Subjective Date of Service: 01/06/19 Service Type: 46887 Hosp care 15 min low complexity Subjective: Lissette is more irritable today, upset at this clinician presumably for referring her back to the [facility]. "Could it be Dr. Head, that you've got to recuse yourself from these proceedings because of what you admitted to me the day I arrived...that you have in fact taken bribes from the [employer] ?" She is disorganized and not responding well to milieu treatment. Objective - General Observations Appearance: Unkempt Stature: Short Posture: WNL Eye Contact: Intense Behavior/Activity: Peculiar - Interaction Observations Attitude Towards Examiner: Uncooperative Stated Mood: Irritable Speech Pattern/Tone: Garbled Thought Process: Disorganized Perception: WNL Thought Content: Paranoid Thought Process: Lethality: Paranoid Ideation Hallucination Type: Auditory Delusion Type: Persecution - Cognitive Function Orientation: A&O x 4 Level of Consciousness: Awake Cognition: WNL Estimated Intelligence: Normal Insight: WNL Judgment Within Normal Limits: No Ability to Make Reasonable Decisions: Serverely Impaired - Medication Compliance Cooperative with Inpatient Medication Regimen: Yes - Group Participation Participates in Group Activities: No Assessment - Assessment Merits Inpatient Hospitalization: For Immediate Safety, For Stabilization Inpatient DSM-V Dx: F25.0 Clinical Impression: 68 y.o. single, white female with a history of chronic schizoaffective disorder , bipolar type, brought to the hospital on a 9.41 involuntary legal status from the [facility] Police precinct, where she had earlier shown up, ranting and creating a disturbance. BSU: Problem List - Patient Problems (1) Schizoaffective disorder, bipolar type Current Visit: No Status: Acute Priority: High Code(s): F25.0 - SCHIZOAFFECTIVE DISORDER, BIPOLAR TYPE SNOMED Code(s): 79835325 Plan - Plan Treatment Plan: Name: LISSETTE ARTIS Birthdate: 1950 [id number] As per the engineering specialist's order, we have resumed treatment with fluphenazine decanoate 50mg IM q2wks (01/01). She needs to take the oral 10mg of daily fluphenazine as well or receive it via IM injection. Will refer to the [facility]. Continued Medication Management: Start Medication Medications: Current Medications Acetaminophen (Tylenol Tab*) 650 mg PO Q4H PRN PRN Reason: for pain; or Temp >101 F Al Hydrox/Mg Hydrox/Simethicone (Maalox Plus*) 30 ml PO Q4H PRN PRN Reason: INDIGESTION Fluphenazine HCl (Fluphenazine Im*) 5 mg IM DAILY PRN PRN Reason: court order Fluphenazine HCl (Prolixin Tab*) 10 mg PO DAILY TAHIRA Last Admin: 01/06/19 08:47 Dose: 10 mg Lorazepam (Ativan Tab(*)) 1 mg PO Q6H PRN PRN Reason: ANXIETY - Discharge Plan Discharge Plan: Consider Longer Term Tx
[2019-01-07] MEDS: fluPHENAZine HCL TAB* 5 MG PO SCH (09:12)
[2019-01-08] MEDS: fluPHENAZine HCL TAB* 5 MG PO SCH (09:37)
--- NOTE | 2019-01-08 12:36 | PN ---
Subjective - Subjective Date of Service: 01/08/19 Service Type: 37342 Hosp care 15 min low complexity Subjective: Lissette remains deeply delusional. She states that there has been a "writ of habeas corpus" identified in the [place] Constitution that stipulates that she must be discharged to home immediately. "It's on the software of your computer but a man who works for you took it off and buried it down further into the harddrive." She is not improving. Objective - General Observations Appearance: Unkempt Stature: Short Posture: WNL Eye Contact: Average Behavior/Activity: Peculiar - Interaction Observations Attitude Towards Examiner: Mistrustful Stated Mood: Irritable Affect: Blunted Speech Pattern/Tone: Garbled Thought Process: Tangential Perception: WNL Thought Content: Grandiose Thought Process: Lethality: Paranoid Ideation Hallucination Type: Auditory Delusion Type: Persecution - Cognitive Function Orientation: A&O x 4 Level of Consciousness: Awake Cognition: WNL Estimated Intelligence: Normal Insight: Difficulty Acknowledging Presence of Psyciatric Problems Judgment Within Normal Limits: No Ability to Make Reasonable Decisions: Serverely Impaired - Medication Compliance Cooperative with Inpatient Medication Regimen: Yes - Group Participation Participates in Group Activities: No Assessment - Assessment Merits Inpatient Hospitalization: For Immediate Safety, For Stabilization Inpatient DSM-V Dx: F25.0 Clinical Impression: 68 y.o. single, white female with a history of chronic schizoaffective disorder , bipolar type, brought to the hospital on a 9.41 involuntary legal status from the [facility] Police precinct, where she had earlier shown up, ranting and creating a disturbance. BSU: Problem List - Patient Problems (1) Schizoaffective disorder, bipolar type Current Visit: No Status: Acute Priority: High Code(s): F25.0 - SCHIZOAFFECTIVE DISORDER, BIPOLAR TYPE SNOMED Code(s): 76492022 Plan - Plan Treatment Plan: Name: LISSETTE ARTIS Birthdate: 1950 [id number] As per the geothermal powerplant mechanic's order, we have resumed treatment with fluphenazine decanoate 50mg IM q2wks (01/01). She needs to take the oral 10mg of daily fluphenazine as well or receive it via IM injection. Will refer to the [facility]. Continued Medication Management: Start Medication Medications: Current Medications Acetaminophen (Tylenol Tab*) 650 mg PO Q4H PRN PRN Reason: for pain; or Temp >101 F Al Hydrox/Mg Hydrox/Simethicone (Maalox Plus*) 30 ml PO Q4H PRN PRN Reason: INDIGESTION Fluphenazine HCl (Fluphenazine Im*) 5 mg IM DAILY PRN PRN Reason: court order Fluphenazine HCl (Prolixin Tab*) 10 mg PO DAILY TAHIRA Last Admin: 01/08/19 09:37 Dose: 10 mg Lorazepam (Ativan Tab(*)) 1 mg PO Q6H PRN PRN Reason: ANXIETY - Discharge Plan Discharge Plan: Consider Longer Term Tx
[2019-01-09] MEDS: fluPHENAZine HCL TAB* 5 MG PO SCH (08:50)
[2019-01-10] MEDS: fluPHENAZine HCL TAB* 5 MG PO SCH (10:00)
[2019-01-11] MEDS: fluPHENAZine HCL TAB* 5 MG PO SCH (08:49)
--- NOTE | 2019-01-11 10:12 | PN ---
Subjective - Subjective Date of Service: 01/11/19 Service Type: 52527 Hosp care 15 min low complexity Subjective: The patient is hypergraphic, has written a stack of letters to various [place] [address] Justices and local judges. Very delusional. Objective - General Observations Appearance: Well Groomed Stature: Short Posture: WNL Eye Contact: Average Behavior/Activity: Peculiar - Interaction Observations Attitude Towards Examiner: Mistrustful Stated Mood: Irritable Affect: Blunted Speech Pattern/Tone: Garbled Thought Process: Disorganized Perception: WNL Thought Content: Grandiose Thought Process: Lethality: Paranoid Ideation Hallucination Type: Auditory Delusion Type: Grandeur - Cognitive Function Orientation: A&O x 4 Level of Consciousness: Awake Cognition: WNL Estimated Intelligence: Normal Insight: Difficulty Acknowledging Presence of Psyciatric Problems Judgment Within Normal Limits: No - Medication Compliance Cooperative with Inpatient Medication Regimen: Yes - Group Participation Participates in Group Activities: No Assessment - Assessment Merits Inpatient Hospitalization: For Immediate Safety, For Stabilization Inpatient DSM-V Dx: F25.0 Clinical Impression: 68 y.o. single, white female with a history of chronic schizoaffective disorder , bipolar type, brought to the hospital on a 9.41 involuntary legal status from the [facility] precinct, where she had earlier shown up, ranting and creating a disturbance. BSU: Problem List - Patient Problems (1) Schizoaffective disorder, bipolar type Current Visit: No Status: Acute Priority: High Code(s): F25.0 - SCHIZOAFFECTIVE DISORDER, BIPOLAR TYPE SNOMED Code(s): 78193585 Plan - Plan Treatment Plan: Name: LISSETTE ARTIS Birthdate: 1950 [id number] As per the equipment engineering technician's order, we have resumed treatment with fluphenazine decanoate 50mg IM q2wks (01/01). She needs to take the oral 10mg of daily fluphenazine as well or receive it via IM injection. Will refer to the [facility]. Continued Medication Management: Start Medication Medications: Current Medications Acetaminophen (Tylenol Tab*) 650 mg PO Q4H PRN PRN Reason: for pain; or Temp >101 F Al Hydrox/Mg Hydrox/Simethicone (Maalox Plus*) 30 ml PO Q4H PRN PRN Reason: INDIGESTION Fluphenazine HCl (Fluphenazine Im*) 5 mg IM DAILY PRN PRN Reason: court order Fluphenazine HCl (Prolixin Tab*) 10 mg PO DAILY TAHIRA Last Admin: 01/11/19 08:49 Dose: 10 mg Lorazepam (Ativan Tab(*)) 1 mg PO Q6H PRN PRN Reason: ANXIETY - Discharge Plan Discharge Plan: Consider Longer Term Tx
[2019-01-12] MEDS: fluPHENAZine HCL TAB* 5 MG PO SCH (08:13)
--- NOTE | 2019-01-12 11:19 | PN ---
BSU: Group Therapy Note - Service Type Service Type: [id number] Group Psychotherapy - Cognitive Behavioral Group Therapy ( CBT):Patient attended CBT programming this morning and presented with flat affect that did not vary with discussion. Although responsive to direct prompts to respond to questions, patient did not engage in spontaneous conversation.
--- NOTE | 2019-01-13 10:02 | PN ---
Subjective - Subjective Date of Service: 01/13/19 Service Type: 76002 Hosp care 15 min low complexity Subjective: Lissette remains delusional and minimally cooperative with milieu activities. She has a court hearing tomorrow for retention and is demanding that a dress be made available, as she wishes to represent herself in the proceedings. "There is a letter from the court that the dress be made available, cleaned and pressed." Objective - General Observations Appearance: Well Groomed Appears Stated Age: Yes Stature: Short Posture: WNL Eye Contact: Intermittent Behavior/Activity: Stereotyped - Interaction Observations Attitude Towards Examiner: Mistrustful Stated Mood: Irritable Affect: Blunted Speech Pattern/Tone: Garbled Thought Process: Disorganized Perception: WNL Thought Content: Grandiose Thought Process: Lethality: Paranoid Ideation Hallucination Type: Auditory Delusion Type: Grandeur - Cognitive Function Orientation: A&O x 4 Level of Consciousness: Awake Cognition: WNL Estimated Intelligence: Normal Insight: Difficulty Acknowledging Presence of Psyciatric Problems Judgment Within Normal Limits: No Ability to Make Reasonable Decisions: Serverely Impaired - Medication Compliance Cooperative with Inpatient Medication Regimen: Yes - Group Participation Participates in Group Activities: No Assessment - Assessment Merits Inpatient Hospitalization: For Immediate Safety, For Stabilization Inpatient DSM-V Dx: F25.0 Clinical Impression: 68 y.o. single, white female with a history of chronic schizoaffective disorder , bipolar type, brought to the hospital on a 9.41 involuntary legal status from the [facility], where she had earlier shown up, ranting and creating a disturbance. BSU: Problem List - Patient Problems (1) Schizoaffective disorder, bipolar type Current Visit: No Status: Acute Priority: High Code(s): F25.0 - SCHIZOAFFECTIVE DISORDER, BIPOLAR TYPE SNOMED Code(s): 52909568 Plan - Plan Treatment Plan: Name: LISSETTE ARTIS Birthdate: 1950 [id number] As per the director airport operations's order, we have resumed treatment with fluphenazine decanoate 50mg IM q2wks (01/01). She needs to take the oral 10mg of daily fluphenazine as well or receive it via IM injection. Will refer to the [facility]. Continued Medication Management: Start Medication Medications: Current Medications Acetaminophen (Tylenol Tab*) 650 mg PO Q4H PRN PRN Reason: for pain; or Temp >101 F Al Hydrox/Mg Hydrox/Simethicone (Maalox Plus*) 30 ml PO Q4H PRN PRN Reason: INDIGESTION Fluphenazine HCl (Fluphenazine Im*) 5 mg IM DAILY PRN PRN Reason: court order Fluphenazine HCl (Prolixin Tab*) 10 mg PO DAILY TAHIRA Last Admin: 01/12/19 08:13 Dose: 10 mg Lorazepam (Ativan Tab(*)) 1 mg PO Q6H PRN PRN Reason: ANXIETY - Discharge Plan Discharge Plan: Consider Longer Term Tx
[2019-01-13] MEDS: fluPHENAZine HCL TAB* 5 MG PO SCH (10:16)
--- NOTE | 2019-01-13 11:30 | PN ---
BSU: Group Therapy Note - Service Type Service Type: 28024 Group Psychotherapy - Cognitive Behavioral Group Note: [place] attended programming this morning and presented with good affect and remained in behavioral control. Although she continues to present with delusional beliefs about her own history, including attending [employer] and having a medical degree. At other times she discusses relevant history in a factual manner. Regardless, she was appropriate in conversation with peers, which martinez improvement in her function from recent history.
[2019-01-14] MEDS: fluPHENAZine HCL TAB* 5 MG PO SCH (09:59)
[2019-01-15 09:13] VITALS: BP 116/78
[2019-01-15] MEDS: fluPHENAZine HCL TAB* 5 MG PO SCH (09:14)
[2019-01-15] MEDS ORDERED: LORazepam TAB(*) 1 MG PO ONE (11:34)
--- NOTE | 2019-01-15 13:44 | DS ---
DISCHARGE SUMMARY: DATE OF ADMISSION: 12/23/18 DATE OF DISCHARGE: 01/15/19 DISCHARGE DIAGNOSES: As follows: [place] I: Schizoaffective disorder, bipolar type. [place] II: Deferred . CONDITION AT THE TIME OF DISCHARGE: Guarded. The patient remains paranoid, hostile, and irritable d espite resumption of antipsychotic medication. She clearly needs further inpatient care and for this reason, we are transferring her directly to the [facility]. MENTAL STATUS EXAM AT THE TIME OF DISCHARGE: The patient is an aging white female who appears to be fairly clean and well groomed. She is wearing spectacles. She makes good eye contact. Speech is so mewhat rambling and garbled with a distinct southern accent. Mood appears to be irritable with somew hat labile affect. Thought process is circumstantial to tangential. 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 She denies auditory or visual hallucinations; however, she has routinely been heard talking to unseen ot hers in her room. She denies suicidal or homicidal ideations. Insight and judgment appeared to be m arkedly impaired given her historic lack of adherence with outpatient treatment. Cognitively, she is awake and alert with what would appear to be an average intellect. LABORATORY DATA: Comprehensive metabolic testing was performed on 12/24/18, which revealed a hemoglo bin A1c of 5.4, triglycerides 46, cholesterol 126, LDL cholesterol 74, HDL cholesterol 43.1. DISCHARGE INSTRUCTIONS TO THE PATIENT: As follows: A. Medications: She is taking fluphenazine deca noate 50 mg IM every 2 weeks. Her next injection is due , 01/21/19. In addition, she receiv ed 10 mg of oral fluphenazine by mouth once daily. B. Diet is regular. C. Activities as tolerated. The patient is a nonsmoker. There are no laboratory or diagnostic studies pending at the time of nahid Riggs Disposition. The patient will be going directly from this hospital to the [facility], where they will be responsible for making all followup care arrangements at her time of discharge from that facility. The accepting physician for the transfer is Dr. Raúl Malcolm Substance abuse followup is non-applicable. HOSPITAL COURSE: A. Reason for admission: The patient is a 68-year-old single white female with a h istory of schizoaffective disorder bipolar type, who was brought to the emergency room directly by [facility] local [place] police precinct where she had appeared with delusions demanding that they placed all t he employees in long term. Apparently, she has been obstructing law enforcement agencies from carrying ou t their responsibilities by continually calling the police and showing up uninvited to local stations with delusional rants. 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 She thinks that she was brought in by the formerly [facility]. She is denying any recent psychiatric treatment saying that she has an order from the [place], signed by chief justice, Matthew Wells indicating that she is not to receive psychiatric care inclu ding medications. We know that she was discharged from our unit in September of 2017 directly to the [facility] and was thereafter discharged from that facility some time in June. After that point, she had briefly followed up with the local [facility] treatment team; however, she had fallen out of care and stopped taking her medications sometime in July of that ye ar. In the past, she has done well on fluphenazine and we have treated her over her objection with c ourt orders for intramuscular Prolixin. B. Psychiatric treatment rendered. The patient was admitted to the adult behavioral health unit and placed on q.15-minute checks for her own safety. [place] was mostly not a behavioral issue on the unit although she became irritable when she was challenged on h er delusions. We often over heard her yelling and screaming in her room as though speaking to unseen people. She was adamant about refusing fluphenazine telling us that there was a court injunction ag ainst this. Nonetheless, the hospital pursued treatment over her objection and brought her to court o n 01/06/19 for an order to medicate her. The hospital won that case and it was on , 01/07/19 that she was medicated with a loading dose of 50 mg of fluphenazine decanoate. Her next injection i s due on 01/21/19. Thereafter, we also started her on Prolixin 10 mg daily in accordance with the [facility]'s order. Unfortunately, [place] did not show much benefit from the resumption of treatment, contin ued to be agitated. She took us back to court on 01/14/19 for retention and became extremely agitate d and somewhat aggressive towards her MH[employer] litigation attorney. We were granted permission to send her to the [facility] and at this point she is accepted by the [facility]. We certainl y wish her the best of luck with her treatment in the future and hope that she can return to the [facility] in a stable healthy fashion. [id number]/[facility] #: [id number]
== END 2019-01-15 11:45 | DRG 885 ==
LOC: ED 11:40 → BSU 15:19
PROVIDERS: ADMIT Psychiatry & Neurology Psychiatry; ATTEND Psychiatry & Neurology Psychiatry
PROC: GZHZZZZ Group Psychotherapy (ICD-10-PCS; principal; 2018-12-23)
DX: F25.0 Schizoaffective disorder, bipolar type (principal); K21.9 Gastro-esophageal reflux disease without esophagitis; E78.00 Pure hypercholesterolemia, unspecified; M17.11 Unilateral primary osteoarthritis, right knee; M19.079 Primary osteoarthritis, unspecified ankle and foot; F41.9 Anxiety disorder, unspecified; H26.9 Unspecified cataract; Z87.891 Personal history of nicotine dependence
CPT/HCPCS: 36415; 80053; 80061; 80307; 80320; 80329; 81003; 82550; 83036; 84443; 85025; 90853; 99222; 99231; 99233; 99238; 99284; A9270-GY; G0480; J2680; J3486

== ENCOUNTER 2021-11-16 16:23 | Inpatient (IN) ==
[2021-11-16 17:32] LABS: ABS Eosinophils 0.2 10^3/ul (0-0.6); ABS Lymphocytes 0.7 10^3/ul (1.0-4.8); ABS Monocytes 0.3 10^3/ul (0-0.8); ABS Neutrophils 5.1 10^3/ul (1.5-7.7); Eosinophil % 3.5 %; Hematocrit 39 % (35-47); Hemoglobin 13.1 g/dL (12.0-16.0); Lymphocyte % 10.9 %; Mean Corpuscular HGB Conc 33 g/dL (31-36); Mean Corpuscular Hemoglobin 31 pg (27-31); Mean Corpuscular Volume 93 fL (80-97); Mean Platelet Volume 8.9 fL (7.4-10.4); Platelet Count 179 10^3/uL (150-450); Red Blood Count 4.23 10^6 /uL (3.70-4.87); Red Cell Distribution Width 14 % (10-15); White Blood Count 6.3 10^3/uL (3.5-10.8)
[2021-11-16 17:45] LABS: ALT 22 U/L (7-52); AST 16 U/L (13-39); Albumin 4.3 g/dL (3.2-5.2); Albumin/Globulin Ratio 1.9 (1-3); Alkaline Phosphatase 95 U/L (35-149); Anion Gap 5 mmol/L (2-11); Blood Urea Nitrogen 13 mg/dL (6-24); CO2 Carbon Dioxide 29 mmol/L (22-32); Chloride 107 mmol/L (101-111); Globulin 2.3 g/dL (2-4); Glucose 130 mg/dL (70-100); Potassium 3.7 mmol/L (3.5-5.0); Sodium 141 mmol/L (135-145); Total Protein 6.6 g/dL (6.4-8.9); eGFR CKD-EPI 77.1 (>60)
[2021-11-16 18:00] LABS: Alcohol, S < 13 mg/dL (<13); Salicylate < 2.50 mg/dL (<30)
[2021-11-16 18:03] LABS: Acetaminophen < 15 mcg/mL
[2021-11-16 18:10] LABS: Urine Appearance Clear; Urine Bilirubin Negative (Negative); Urine Blood Negative (Negative); Urine Color Straw; Urine Glucose Negative (Negative); Urine Ketones Negative (Negative); Urine Nitrite Negative (Negative); Urine Protein Negative (Negative); Urine Specific Gravity 1.004 (1.002-1.030); Urine Urobilinogen Negative (Negative)
[2021-11-16 18:13] LABS: Urine Bacteria Absent (Absent); Urine Red Blood Cell Absent (Absent); Urine Squamous Epithelial Cell Present (Absent); Urine White Blood Cell Trace(0-5/hpf) (Absent)
[2021-11-16 18:15] LABS: TSH Ultra Thyroid Stim Horm 1.47 mcIU/mL (0.34-5.60)
[2021-11-16 18:43] LABS: Urine Benzodiazepine Screen None Detected (None Detect); Urine Cannabinoids Screen None Detected (None Detect); Urine Opiates Screen None Detected (None Detect)
[2021-11-17] MEDS ORDERED: Al Hydrox/Mg Hydrox/Simet LIQ 30 ML UDC PO PRN (05:10)
[2021-11-17] MEDS ORDERED: chlorproMAZINE TAB 50 MG Q8H PRN AGITATION PO (05:11)
[2021-11-17] MEDS: Vitamin THERAPEUTIC TAB PO SCH (08:20)
[2021-11-18 08:19] LABS: HDL Cholesterol 39.1 mg/dL
[2021-11-18] MEDS: Vitamin THERAPEUTIC TAB PO SCH (08:36)
[2021-11-19] MEDS: Vitamin THERAPEUTIC TAB PO SCH (08:04)
[2021-11-20] MEDS: Vitamin THERAPEUTIC TAB PO SCH (07:56)
[2021-11-21] MEDS: Vitamin THERAPEUTIC TAB PO SCH (07:41)
[2021-11-22] MEDS: Vitamin THERAPEUTIC TAB PO SCH (08:22)
[2021-11-23] MEDS: Vitamin THERAPEUTIC TAB PO SCH (09:19)
[2021-11-24] MEDS: Vitamin THERAPEUTIC TAB PO SCH (08:13)
[2021-11-25] MEDS: Vitamin THERAPEUTIC TAB PO SCH (08:14)
[2021-11-26] MEDS: Vitamin THERAPEUTIC TAB PO SCH (07:55)
[2021-11-26 08:16] VITALS: BP 144/73
== END 2021-11-26 14:00 | disposition home or self-care (01) | DRG 885 ==
LOC: ED 16:23 → EDHOLD 11-17 04:37 → BSU 11-17 07:58
PROVIDERS: ADMIT Psychiatry & Neurology Addiction Psychiatry; ATTEND Psychiatry & Neurology Psychiatry

== ENCOUNTER 2022-11-21 14:00 | Inpatient (IN) ==
[2022-11-21 14:49] LABS: ABS Basophils 0.1 10^3/ul (0-0.2); ABS Eosinophils 0.2 10^3/ul (0-0.6); ABS Lymphocytes 0.6 10^3/ul (1.0-4.8); ABS Monocytes 0.3 10^3/ul (0-0.8); ABS Neutrophils 4.8 10^3/ul (1.5-7.7); Eosinophil % 4.1 %; Hematocrit 38 % (35-47); Hemoglobin 12.1 g/dL (12.0-16.0); Lymphocyte % 9.7 %; Mean Corpuscular HGB Conc 32 g/dL (31-36); Mean Corpuscular Hemoglobin 30 pg (27-31); Mean Corpuscular Volume 92 fL (80-97); Mean Platelet Volume 9.4 fL (7.4-10.4); Platelet Count 134 10^3/uL (150-450); Red Blood Count 4.06 10^6 /uL (3.70-4.87); Red Cell Distribution Width 15 % (10-15); White Blood Count 6.1 10^3/uL (3.5-10.8)
[2022-11-21] MEDS ORDERED: NS 0.9% 1000 ml BAG 1,000 ML IV ONE (15:18)
[2022-11-21 15:25] LABS: Albumin 3.8 g/dL (3.2-5.2); Albumin/Globulin Ratio 2.2 (1-3); Calcium 8.9 mg/dL (8.6-10.3); Creatinine, Serum 1.03 mg/dL (0.51-0.95); Globulin 1.7 g/dL (2-4); Lithium 1.35 mmol/L (0.6-1.2); Potassium 4.5 mmol/L (3.5-5.0); Total Bilirubin 0.4 mg/dL (0.2-1.0); Total Protein 5.5 g/dL (6.4-8.9); eGFR CKD-EPI 57.4 (>60)
[2022-11-21] MEDS ORDERED: Iodixanol (CONTRAST) 320 MG/ML 100 ML SDV IV ONE (15:51)
[2022-11-21 16:17] LABS: High Sensitivity Troponin 1 Hr 12 pg/mL (<15)
[2022-11-21] MEDS ORDERED: Lactated Ringers 1000 ml BAG 1,000 ML IV SCH (20:00)
[2022-11-21] MEDS ORDERED: NS 0.9% 1000 ml BAG 1,000 ML IV SCH (20:15)
[2022-11-22] MEDS: Enoxaparin 40 MG/0.4 ML SYR SUBCUT SCH ×2 (01:00→22:51)
[2022-11-22] MEDS: NS 0.9% 1000 ml BAG 1,000 ML IV SCH ×2 (01:01→17:09)
[2022-11-22 07:29] LABS: ABS Eosinophils 0.3 10^3/ul (0-0.6); ABS Lymphocytes 0.9 10^3/ul (1.0-4.8); ABS Monocytes 0.3 10^3/ul (0-0.8); ABS Neutrophils 3.6 10^3/ul (1.5-7.7); Hematocrit 39 % (35-47); Hemoglobin 12.6 g/dL (12.0-16.0); Lymphocyte % 16.9 %; Mean Corpuscular HGB Conc 33 g/dL (31-36); Mean Corpuscular Hemoglobin 31 pg (27-31); Mean Corpuscular Volume 93 fL (80-97); Mean Platelet Volume 9.7 fL (7.4-10.4); Platelet Count 127 10^3/uL (150-450); Red Blood Count 4.12 10^6 /uL (3.70-4.87); Red Cell Distribution Width 15 % (10-15); White Blood Count 5.2 10^3/uL (3.5-10.8)
[2022-11-22 08:03] LABS: Calcium 9.2 mg/dL (8.6-10.3); Creatinine, Serum 1.02 mg/dL (0.51-0.95); Lithium 0.85 mmol/L (0.6-1.2); Potassium 4.2 mmol/L (3.5-5.0); eGFR CKD-EPI 58.1 (>60)
[2022-11-22] MEDS ORDERED: LORazepam 2 mg VIAL 1 ml IV PUSH PRN ×2 (09:47→11:44)
[2022-11-22] MEDS ORDERED: Lorazepam PYXIS KEY PRN (09:47)
[2022-11-22] MEDS: Aspirin EC 81 mg TAB.EC (enteric coated) PO SCH (09:51)
[2022-11-22] MEDS: CMCS: Meloxicam 7.5 mg TAB (NF) PO SCH (09:56)
[2022-11-22] MEDS: CMCS: Desmopressin 0.1 mg TAB (NF) PO SCH (09:56)
[2022-11-22 10:10] LABS: C Reactive Protein 1.55 mg/L (<8.01)
[2022-11-22 10:24] LABS: TSH Ultra Thyroid Stim Horm 2.72 mcIU/mL (0.34-5.60)
[2022-11-22] MEDS ORDERED: Cyanocobalamin INJ 1,000 MCG/ML VIAL 1 ML VIAL IM ONE (10:40)
[2022-11-22 10:54] LABS: PCO2 Arterial 40 mmHg (35-45); PO2 Arterial 67 mmHg (80-100)
[2022-11-22] MEDS ORDERED: LaCOSAMide VIAL 200 MG in NS 0.9% 50 ML 50 ML IV ONE (16:16)
[2022-11-22] MEDS: Lactulose 30 ml UDC PO SCH ×2 (17:09→22:53)
[2022-11-23] MEDS: Lactulose 30 ml UDC PO SCH ×3 (08:46→20:13)
[2022-11-23] MEDS: Aspirin EC 81 mg TAB.EC (enteric coated) PO SCH (08:46)
[2022-11-23] MEDS: LaCOSAMide VIAL 100 MG in NS 0.9% 50 ML 50 ML IV SCH ×2 (10:12→22:45)
[2022-11-23] MEDS: CMCS: Desmopressin 0.1 mg TAB (NF) PO SCH (10:22)
[2022-11-23] MEDS: CMCS: Meloxicam 7.5 mg TAB (NF) PO SCH (10:22)
[2022-11-23] MEDS: Enoxaparin 40 MG/0.4 ML SYR SUBCUT SCH (20:17)
[2022-11-24] MEDS: Lactulose 30 ml UDC PO SCH ×2 (09:08→20:05)
[2022-11-24] MEDS: CMCS: Meloxicam 7.5 mg TAB (NF) PO SCH (09:08)
[2022-11-24] MEDS: CMCS: Desmopressin 0.1 mg TAB (NF) PO SCH (09:08)
[2022-11-24] MEDS: Aspirin EC 81 mg TAB.EC (enteric coated) PO SCH (09:08)
[2022-11-24] MEDS: LaCOSAMide VIAL 100 MG in NS 0.9% 50 ML 50 ML IV SCH (09:20)
[2022-11-24] MEDS: Enoxaparin 40 MG/0.4 ML SYR SUBCUT SCH (20:04)
[2022-11-25 05:44] LABS: Urine Appearance Clear; Urine Bilirubin Negative (Negative); Urine Blood Negative (Negative); Urine Color Straw; Urine Glucose Negative (Negative); Urine Ketones Negative (Negative); Urine Nitrite Negative (Negative); Urine Protein Negative (Negative); Urine Specific Gravity 1.005 (1.002-1.030); Urine Urobilinogen Negative (Negative)
[2022-11-25 05:47] LABS: Urine Bacteria Absent (Absent); Urine Red Blood Cell Trace(0-2/hpf) (Absent); Urine Squamous Epithelial Cell Present (Absent); Urine White Blood Cell 2+(11-20/hpf) (Absent)
[2022-11-25] MEDS: Lactulose 30 ml UDC PO SCH (09:43)
[2022-11-25] MEDS: CMCS: Desmopressin 0.1 mg TAB (NF) PO SCH (09:44)
[2022-11-25] MEDS: Aspirin EC 81 mg TAB.EC (enteric coated) PO SCH (09:46)
[2022-11-25] MEDS: CMCS: Meloxicam 7.5 mg TAB (NF) PO SCH (09:46)
[2022-11-25] MEDS: Enoxaparin 40 MG/0.4 ML SYR SUBCUT SCH (20:29)
[2022-11-26 05:48] VITALS: BP 126/77
[2022-11-26] MEDS: Aspirin EC 81 mg TAB.EC (enteric coated) PO SCH (09:18)
[2022-11-26] MEDS: CMCS: Desmopressin 0.1 mg TAB (NF) PO SCH (09:19)
[2022-11-26] MEDS: CMCS: Meloxicam 7.5 mg TAB (NF) PO SCH (09:22)
== END 2022-11-26 11:00 | disposition home or self-care (01) | DRG 91 ==
LOC: ED 14:00 → EDHOLD 14:00 → SUATTDRO 17:20 → EDHOLD 11-22 11:06 → MEDTELE 11-22 11:19 → SUATTDRO 11-23 13:36 → MED 11-25 21:23
PROVIDERS: ADMIT Internal Medicine; ATTEND Internal Medicine

== ENCOUNTER 2023-08-22 08:42 | Observation (INO) ==
[~2023-08-22 08:42] MED LIST: Buffered Lidocaine 1% SYRIN 1 ml INTRADERM ONE; Ertapenem 1 GM in NS 0.9% 50 ML IVPB ONE; HYDROmorphone 1 MG/1 ML SYRINGE IV PRN; Lactated Ringers 1000 ml BAG 1,000 ML IV SCH; Naloxone 0.4 mg VIAL 0.4 mg/ml 1 ml VIAL IV PRN; Ondansetron 4 mg VIAL 2 MG/ML 2 ml VIAL IV PRN; Scopolamine 1 mg/72hr PATCH TRANSDERM ONE; fentaNYL 100 mcg/2 ml 50 MCG/ML VIAL IV PRN
[2023-08-22] MEDS ORDERED: Scopolamine 1 mg/72hr PATCH ONE (09:43)
[2023-08-22 10:24] LABS: Rapid COVID-19 Molecular Undetected (Undetected)
[2023-08-22] MEDS ORDERED: fentaNYL 250 mcg/5 ml 50 MCG/ML 5 ml VIAL (250 MCG) ONE (11:30)
[2023-08-22] MEDS ORDERED: Lidocaine 2% PF 5 ML VIAL ONE (11:30)
[2023-08-22] MEDS ORDERED: Propofol 10 MG/ML 20 ML BTL ONE (11:30)
[2023-08-22] MEDS ORDERED: Midazolam 2 mg/2 ml VIAL 1 mg/ml 2 ml VIAL (2 mg) ONE (11:30)
[2023-08-22] MEDS ORDERED: Bupivacaine 0.25% SDV 30 ML ONE (12:24)
[2023-08-22] MEDS ORDERED: Lidocaine 1% w EPI 1:200,000 SDV 30 ML VIAL ONE (12:24)
[2023-08-22] MEDS ORDERED: Sodium Chloride 0.9% 10 ML ONE ×2 (12:32→14:49)
[2023-08-22] MEDS ORDERED: Dexamethasone IV 4 MG/ML VIAL 1 ml VIAL ONE (13:18)
[2023-08-22] MEDS ORDERED: Ondansetron 4 mg VIAL 2 MG/ML 2 ml VIAL ONE (13:18)
[2023-08-22] MEDS ORDERED: Phenylephrine 40 mcg/mL 10mL (400mcg) SYRINGE ONE (13:36)
[2023-08-22] MEDS ORDERED: Acetaminophen IV 1 GM/100ML 1,000 MG/100 ML BAG IV PRN (18:28)
[2023-08-22] MEDS ORDERED: HYDROcodone/ACETAMIN 5/325 mg TAB PO PRN (18:29)
[2023-08-22] MEDS ORDERED: Erythromycin OPTH OINT APPLIC OINT BOTH EYES SCH (21:00)
[2023-08-22] MEDS ORDERED: CMCS: Desmopressin 0.1 mg TAB (NF) PO SCH (22:00)
[2023-08-23] MEDS ORDERED: Aspirin EC 81 mg TAB.EC (enteric coated) PO SCH (09:00)
[2023-08-23 11:05] VITALS: BP 106/68
[2023-08-24] MEDS ORDERED: Meloxicam 7.5 mg TAB (NF) PO SCH (09:00)
== END 2023-08-23 11:25 ==
LOC: OR 08:42 → SSU 08:42
PROVIDERS: ADMIT Surgery; ATTEND Surgery

== ENCOUNTER 2024-01-19 17:00 | Inpatient (IN) ==
[2024-01-19 18:34] LABS: ABS Eosinophils 0.1 10^3/uL (0.0-0.5); ABS Lymphocytes 0.4 10^3/uL (1.0-4.8); ABS Monocytes 0.5 10^3/uL (0.0-0.9); ABS Neutrophils 8.1 10^3/uL (1.5-7.6); Eosinophil % 1.4 %; Hematocrit 41.2 % (35-45); Hemoglobin 13.3 g/dL (11.5-14.3); Lymphocyte % 3.8 %; Mean Corpuscular Hemoglobin 30.8 pg (27-33); Mean Corpuscular Hgb Conc 32.2 g/dL (31-36); Mean Corpuscular Volume 95.6 fL (80-97); Platelet Count 196 10^3/uL (150-450); Red Blood Count 4.31 10^6/uL (3.63-4.92); Red Cell Distribution Width 16.8 % (12-17); White Blood Count 9.2 10^3/uL (3.8-11.8)
[2024-01-19 18:48] LABS: High Sens Troponin Baseline 28 pg/mL (<15)
[2024-01-19 19:31] LABS: ALT 33 U/L (7-52); Albumin 4.2 g/dL (3.2-5.2); Albumin/Globulin Ratio 2.6 (1-3); Alkaline Phosphatase 74 U/L (35-149); Anion Gap 6 mmol/L (2-16); Blood Urea Nitrogen 30 mg/dL (6-24); CO2 Carbon Dioxide 26 mmol/L (22-32); Calcium 8.6 mg/dL (8.6-10.3); Chloride 105 mmol/L (101-111); Creatinine, Serum 1.03 mg/dL (0.51-0.95); Globulin 1.6 g/dL (2-4); Glucose 125 mg/dL (70-100); Sodium 137 mmol/L (135-145); Total Bilirubin 0.7 mg/dL (0.2-1.0); Total Protein 5.8 g/dL (6.4-8.9); eGFR CKD-EPI 57.1 (>60)
[2024-01-19 19:41] LABS: INR 1.07 (0.83-1.13)
[2024-01-19 19:55] LABS: High Sensitivity Troponin 1 Hr 33 pg/mL (<15)
[2024-01-19] MEDS: Iodixanol (CONTRAST) 320 MG/ML 100 ML SDV IV ONE (22:42)
[2024-01-19] MEDS: Furosemide 40 mg/4 ml IV VIAL IV SLOW PU ONE (23:38)
[2024-01-20 00:07] LABS: Lithium 1.21 mmol/L (0.6-1.2)
[2024-01-20] MEDS: cefTRIAXone 1 gm/50 mL D5W 1 GM/50 ML BAG IV ONE (01:05)
[2024-01-20 02:14] LABS: Magnesium 2.3 mg/dL (1.9-2.7)
[2024-01-20 02:29] LABS: TSH Ultra Thyroid Stim Horm 1.32 mcIU/mL (0.34-5.60)
[2024-01-20 03:28] LABS: C Reactive Protein 3.9 mg/L (<8.01)
[2024-01-20 04:08] LABS: Urine Appearance Clear; Urine Bilirubin Negative (Negative); Urine Blood Negative (Negative); Urine Color Yellow; Urine Glucose Negative (Negative); Urine Ketones Negative (Negative); Urine Nitrite Negative (Negative); Urine Protein 1+ (>=30 mg/dL) (Negative); Urine Urobilinogen Negative (Negative); Urine pH 5.5 (5.0-8.0)
[2024-01-20 04:15] LABS: ABS Eosinophils 0.2 10^3/uL (0.0-0.5); ABS Lymphocytes 0.5 10^3/uL (1.0-4.8); ABS Monocytes 0.5 10^3/uL (0.0-0.9); ABS Neutrophils 5.5 10^3/uL (1.5-7.6); Eosinophil % 2.8 %; Hematocrit 40.1 % (35-45); Hemoglobin 13.4 g/dL (11.5-14.3); Lymphocyte % 7.3 %; Mean Corpuscular Hemoglobin 32.1 pg (27-33); Mean Corpuscular Hgb Conc 33.4 g/dL (31-36); Mean Corpuscular Volume 95.9 fL (80-97); Platelet Count 167 10^3/uL (150-450); Red Blood Count 4.18 10^6/uL (3.63-4.92); Red Cell Distribution Width 16.7 % (12-17); White Blood Count 6.7 10^3/uL (3.8-11.8)
[2024-01-20] MEDS: Lactulose 30 ml UDC PO SCH (04:27)
[2024-01-20 04:47] LABS: Anion Gap 5 mmol/L (2-16); Blood Urea Nitrogen 28 mg/dL (6-24); CO2 Carbon Dioxide 32 mmol/L (22-32); Calcium 8.8 mg/dL (8.6-10.3); Chloride 104 mmol/L (101-111); Creatinine, Serum 1.04 mg/dL (0.51-0.95); Glucose 116 mg/dL (70-100); Sodium 141 mmol/L (135-145); eGFR CKD-EPI 56.4 (>60)
[2024-01-20 04:53] LABS: Urine Bacteria Absent /HPF (Absent); Urine Red Blood Cell Trace(0-2/hpf) /HPF (0-Trace); Urine Squamous Epithelial Cell Present /HPF (Absent); Urine White Blood Cell Trace(0-5/hpf) /HPF (0-Trace)
[2024-01-20] MEDS: Enoxaparin 40 MG/0.4 ML SYR SUBCUT SCH (06:44)
[2024-01-20 07:01] LABS: Magnesium 2.3 mg/dL (1.9-2.7)
[2024-01-20] MEDS: Furosemide 40 mg/4 ml IV VIAL IV ONE (07:54)
[2024-01-20] MEDS: Aspirin EC 81 mg TAB.EC (enteric coated) PO SCH (09:21)
[2024-01-20] MEDS ORDERED: Sulfur Hexaflouride MICROSPHR 25 MG VIAL ONE (09:49)
[2024-01-20] MEDS ORDERED: CLOZAPINE 200 MG PO SCH (21:00)
[2024-01-21 02:57] LABS: Calcium 8.2 mg/dL (8.6-10.3); Creatinine, Serum 1.11 mg/dL (0.51-0.95); Potassium 4.1 mmol/L (3.5-5.0); eGFR CKD-EPI 52.2 (>60)
[2024-01-21 03:07] LABS: Hematocrit 38.9 % (35-45); Hemoglobin 12.5 g/dL (11.5-14.3); Mean Corpuscular Hgb Conc 32.1 g/dL (31-36); Mean Corpuscular Volume 96.5 fL (80-97); Red Blood Count 4.03 10^6/uL (3.63-4.92); Red Cell Distribution Width 16.4 % (12-17); White Blood Count 7.8 10^3/uL (3.8-11.8)
[2024-01-21 03:40] LABS: ABS Eosinophils 0.2 10^3/uL (0.0-0.5); ABS Lymphocytes 0.4 10^3/uL (1.0-4.8); ABS Monocytes 0.5 10^3/uL (0.0-0.9); ABS Neutrophils 6.7 10^3/uL (1.5-7.6); Eosinophil % 2.4 %; Lymphocyte % 4.6 %; Mean Platelet Volume 9.6 fL (7.5-11.2); Platelet Count 90 10^3/uL (150-450)
[2024-01-22 06:59] LABS: Calcium 8.8 mg/dL (8.6-10.3); Creatinine, Serum 0.91 mg/dL (0.51-0.95); Lithium 0.96 mmol/L (0.6-1.2); Magnesium 2.2 mg/dL (1.9-2.7); Potassium 4.2 mmol/L (3.5-5.0); eGFR CKD-EPI 66.2 (>60)
[2024-01-22] MEDS: Furosemide 20 mg/2 ml IV VIAL IV ONE (10:29)
[2024-01-22 13:24] LABS: HDL Cholesterol 29.2 mg/dL
[2024-01-24] MEDS: Benzocaine/Menthol LOZ PO PRN (01:53)
[2024-01-24 09:15] LABS: Potassium 4.9 mmol/L (3.5-5.0)
[2024-01-24 09:16] LABS: Creatinine, Serum 0.8 mg/dL (0.51-0.95); Magnesium 2.2 mg/dL (1.9-2.7); eGFR CKD-EPI 77.3 (>60)
[2024-01-24] MEDS: Albuterol/Ipratropium NEB.SOL (2.5/0.5 MG) 3 ML NEB.SOLN INH SCH (11:06)
[2024-01-25 05:57] LABS: Calcium 9.1 mg/dL (8.6-10.3); Creatinine, Serum 0.85 mg/dL (0.51-0.95); Magnesium 2.1 mg/dL (1.9-2.7); Potassium 4.6 mmol/L (3.5-5.0); eGFR CKD-EPI 71.8 (>60)
[2024-01-25] MEDS: Nystatin TOP POWDER 15 GM BTL TOPICAL SCH (14:15)
[2024-01-26 06:03] LABS: Hematocrit 43.8 % (35-45); Mean Corpuscular Hemoglobin 31.1 pg (27-33); Mean Corpuscular Volume 97.1 fL (80-97); Mean Platelet Volume 9.8 fL (7.5-11.2); Platelet Count 89 10^3/uL (150-450); Red Blood Count 4.51 10^6/uL (3.63-4.92); White Blood Count 6.8 10^3/uL (3.8-11.8)
[2024-01-26 06:35] LABS: Creatinine, Serum 1.07 mg/dL (0.51-0.95); Magnesium 2.2 mg/dL (1.9-2.7); Potassium 4.9 mmol/L (3.5-5.0); eGFR CKD-EPI 54.5 (>60)
[2024-01-26] MEDS ORDERED: Albuterol/Ipratropium NEB.SOL (2.5/0.5 MG) 3 ML NEB.SOLN INH PRN ×3 (08:06→10:19)
[2024-01-26] MEDS: Albuterol/Ipratropium NEB.SOL (2.5/0.5 MG) 3 ML NEB.SOLN INH SCH (09:02)
[2024-01-26] MEDS ORDERED: Albuterol/Ipratropium NEB.SOL (2.5/0.5 MG) 3 ML NEB.SOLN INH SCH (11:00)
[2024-01-27] MEDS ORDERED: Senna TAB 8.6 mg TAB PO PRN (04:59)
[2024-01-27] MEDS: Polyethylene Glycol 3350 17 GM PACKET PO PRN (05:18)
[2024-01-27] MEDS: Magnesium Hydroxide LIQ 30 ML UDC PO PRN (05:18)
[2024-01-27 05:21] VITALS: BP 109/52
[2024-01-27 08:37] LABS: Creatinine, Serum 0.85 mg/dL (0.51-0.95); eGFR CKD-EPI 71.8 (>60)
[2024-01-27] MEDS: Magnesium Hydroxide LIQ 30 ML UDC PO SCH (09:10)
[2024-01-27] MEDS ORDERED: Albuterol/Ipratropium NEB.SOL (2.5/0.5 MG) 3 ML NEB.SOLN INH SCH ×2 (10:00)
[2024-01-27] MEDS ORDERED: CMC:Desmopressin 0.1 mg TAB (NF) PO SCH (21:00)
== END 2024-01-27 11:00 | DRG 291 ==
LOC: EDHOLD 17:00 → ED 17:00 → SUATTDRO 01-20 01:32 → MEDTELE 01-20 22:15
PROVIDERS: ADMIT Hospitalist; ATTEND Family Medicine

== ENCOUNTER 2024-08-13 18:47 | Observation (INO) ==
[2024-08-13] MEDS: Iodixanol 320 (CONTRAST) 100 ML SDV IV ONE (19:15)
[2024-08-13 19:27] LABS: Activated Partial Thrombo Time 32.7 seconds (26.0-38.0); INR 0.96 (0.85-1.14)
[2024-08-13 20:13] LABS: Albumin/Globulin Ratio 2.2 (1-3); Calcium 9.2 mg/dL (8.6-10.3); Creatinine, Serum 1.09 mg/dL (0.51-0.95); Globulin 1.8 g/dL (2-4); HDL Cholesterol 33.9 mg/dL; Indirect Bilirubin 0.3 mg/dL (0.3-1.0); Potassium 4.8 mmol/L (3.5-5.0); Total Bilirubin 0.3 mg/dL (0.2-1.0); Total Protein 5.8 g/dL (6.4-8.9)
[2024-08-13 20:37] LABS: ABS Basophils 0.1 10^3/uL (0.0-0.1); ABS Eosinophils 0.3 10^3/uL (0.0-0.5); ABS Lymphocytes 0.9 10^3/uL (1.0-4.8); ABS Monocytes 0.4 10^3/uL (0.0-0.9); ABS Neutrophils 4.1 10^3/uL (1.5-7.6); Eosinophil % 4.9 %; Hematocrit 36.2 % (35-45); Lymphocyte % 16.4 %; Mean Corpuscular Hemoglobin 31.5 pg (27-33); Mean Corpuscular Hgb Conc 33.2 g/dL (31-36); Mean Platelet Volume 9.4 fL (7.5-11.2); Nucleated Red Blood Cells % 0.1 %/100WBC (0.0-0.8); Platelet Count 137 10^3/uL (150-450); Red Blood Count 3.81 10^6/uL (3.63-4.92); Red Cell Distribution Width 14.5 % (12-17); White Blood Count 5.8 10^3/uL (3.8-11.8)
[2024-08-13] MEDS ORDERED: Sulfur Hexaflouride MICROSPHR 25 MG VIAL IV PRN (22:02)
[2024-08-14] MEDS: Cholecalciferol (VIT D3) 1,000 unit TAB PO SCH (10:25)
[2024-08-14] MEDS: Polyethylene Glycol 3350 17 GM PACKET PO SCH (10:27)
[2024-08-14] MEDS: Aspirin EC 81 mg TAB.EC (enteric coated) PO SCH (10:30)
[2024-08-14 21:22] LABS: Urine Appearance Turbid; Urine Bilirubin Negative (Negative); Urine Blood Negative (Negative); Urine Color Light-Yellow; Urine Glucose Negative (Negative); Urine Ketones Negative (Negative); Urine Nitrite 2+ (Negative); Urine Protein Negative (Negative); Urine Specific Gravity 1.014 (1.002-1.030); Urine Urobilinogen Negative (Negative)
[2024-08-14 21:41] LABS: Urine Bacteria 1+ /HPF (Absent); Urine Red Blood Cell 1+(3-5/hpf) /HPF (0-Trace); Urine Squamous Epithelial Cell Present /HPF (Absent); Urine White Blood Cell 3+(>20/hpf) /HPF (0-Trace)
[2024-08-14] MEDS: DESMOPRESSIN 0.1 MG PO SCH (21:58)
[2024-08-15 09:18] LABS: Calcium 9.2 mg/dL (8.6-10.3); Potassium 4.5 mmol/L (3.5-5.0); eGFR CKD-EPI 58.8 (>60)
[2024-08-16] MEDS: Lidocaine PATCH 5% PATCH TRANSDERM SCH (14:41)
[2024-08-17 12:36] VITALS: BP 104/62
== END 2024-08-17 13:00 ==
LOC: ED 18:47 → EDHOLD 18:47 → SUATTDRO 22:02 → MEDTELE 23:59
PROVIDERS: ADMIT Internal Medicine; ATTEND Student in an Organized Health Care Education/Training Program